=== PATIENT | male | born 1950 | race Caucasian/White ===

== ENCOUNTER 2016-05-13 09:14 | Emergency (ER) | payer BC ==
[2016-05-13] MEDS ORDERED: Meclizine 25 MG Tab PO ONE (10:52)
--- NOTE | 2016-05-13 10:52 | EDM.PDOC ---
ED HPI GENERAL MEDICAL PROBLEM - General Chief Complaint: General Stated Complaint: DIZZY/LIGHT HEADED Time Seen by Provider: 05/13/16 10:49 Source of Information: Reports: Patient, RN notes reviewed History Limitations: Reports: No limitations - History of Present Illness INITIAL COMMENTS - FREE TEXT/NARRATIVE: 65-year-old gentleman presents emergency department for a complaint of dizziness , he has a known history of coronary artery disease and atrial fibrillation on chronic anticoagulation, he states the dizziness just started today and it only happens when he stands up if he is laying down no symptoms denies any chest pain fevers nausea vomiting does admit to shortness of breath, - Related Data Allergies Allergy/AdvReac Type Severity Reaction Status Date / Time No Known Allergies Allergy Verified 05/13/16 10:11 Home Meds: Home Meds Aspirin [Low Dose Aspirin EC] 81 mg PO DAILY 11/18/12 [History] Metoprolol Succinate [Toprol XL] 50 mg PO BEDTIME 11/18/12 [History] atorvaSTATin [Lipitor] 40 mg PO BEDTIME 11/18/12 [History] metFORMIN HCl [Metformin HCl] 500 mg PO DAILY 11/18/12 [History] Lisinopril 2.5 mg PO DAILY 08/28/13 [History] Cholecalciferol (Vitamin D3) [Vitamin D3] 2,000 units PO BEDTIME 02/28/14 [ History] Leuprolide [Lupron Depot 3-Month] 1 injection IM ASDIRECTED 12/01/14 [History] Oxybutynin [Oxybutynin ER] 10 mg PO DAILY 12/01/14 [History] Verapamil [Calan SR] 120 mg PO DAILY #30 tab.er 12/02/14 [Rx] Multivitamin with Minerals [Multiple Vitamin] 1 tab PO DAILY 02/05/15 [History] Omeprazole 20 mg PO DAILY 02/05/15 [History] predniSONE [Prednisone] 5 mg PO BID 03/23/15 [History] Calcium Carbonate [Calcium] 600 mg PO DAILY 11/29/15 [History] Abiraterone Acetate [Zytiga] 750 mg PO DAILY 01/17/16 [History] Warfarin [Coumadin] 2.5 mg PO ASDIRECTED 02/12/16 [History] Furosemide 10 mg PO QAM 05/12/16 [History] oxyCODONE HCl/Acetaminophen [Percocet 5-325 mg Tablet] 1 each PO QID 05/12/16 [ History] Past Medical History HEENT History: Reports: Hard of hearing, Impaired vision Cardiovascular History: Reports: Afib, Arrhythmia, Blood clots/VTE/DVT, CAD, High cholesterol, Hypertension, NE Respiratory History: Reports: Bronchitis, recurrent, COPD, PE, Pneumonia, recurrent, Sleep apnea Gastrointestinal History: Reports: Hemorrhoids Genitourinary History: Reports: Prostate disorder Other Genitourinary History: prostate CA, artificial urinary sphincter; needs to be deactived before catheterizing. Spincter at base of bladder Musculoskeletal History: Reports: Amputation Other Musculoskeletal History: left long finger Neurological History: Reports: Neuropathy, peripheral, TIA Endocrine/Metabolic History: Reports: Diabetes, type II Other Hematologic History: chronic inflammatory neuropathy Oncologic (Cancer) History: Reports: Metastatic, Prostate Dermatologic History: Reports: Other (see below) Other Dermatologic History: Left Lower leg bruise - Infectious Disease History Infectious Disease History: Reports: Chicken pox, Shingles - Past Surgical History GI Surgical History: Reports: Appendectomy, Hernia repair/other Male Surgical History: Reports: Prostatectomy Social & Family History - Family History Cardiac: Reports: Hypertension - Tobacco Use Smoking Status *Q: Never Smoker Second Hand Smoke Exposure: Yes - Caffeine Use Caffeine Use: Reports: None - Alcohol Use Days Per Week of Alcohol Use: 1 Number of Drinks Per Day: 1 Total Drinks Per Week: 1 - Recreational Drug Use Recreational Drug Use: No ED ROS GENERAL - Review of Systems Review Of Systems: See Below Constitutional: Denies: fever, chills, weight gain HEENT: Reports: No symptoms Respiratory: Reports: shortness of breath. Denies: wheezing, cough, sputum Cardiovascular: Reports: Dyspnea on exertion, Syncope (Near upon standing). Denies: Chest pain GI/Abdominal: Reports: Bloody stool (Hemorrhoidal problem last colonoscopy was negative) : Reports: no symptoms Musculoskeletal: Reports: no symptoms Skin: Reports: no symptoms Neurological: Reports: dizziness, syncope (Upon standing feels like passing out) ED EXAM, GENERAL - Physical Exam Exam: See Below Free Text/Narrative:: General: Male, not in any distress, alert and oriented x3 HEENT: head is atraumatic normocephalic, eyes pupils equal round reactive to light and accommodation sclera clear no conjunctivitis appreciated. Ears tympanic membranes clear and fitch landmarks and light reflex are present bilaterally canals are clear. Nose no septal deviation, nares are clear, no blood present. Mouth mucosa is moist and pink no erythema or exudate noted in soft palate, tongue is midline uvula is midline, dentition is poor. Neck: Supple no thyromegaly no tracheal deviation. Nodes: Cervical nodes subclavicular nodes nontender no palpable lymphadenopathy noted. Lungs: clear to auscultation bilaterally with symmetrical respirations, no adventitious noise appreciated. CV: Irregular Regular rate and rhythm S1 and S2 appreciated no murmurs rubs or gallops noted. Abdomen: Soft, nontender, no palpable masses or organomegaly appreciated, no distention no guarding bowel sounds are present, . Neuro: Cranial nerves II through XII grossly intact Skin: Warm and dry, intact Extremities: No lower extremity edema appreciated, Course - Vital Signs Last Recorded V/S: Last Vital Signs Temp 97.5 F 05/13/16 10:12 Pulse 70 05/13/16 10:12 Resp 12 05/13/16 10:12 BP 100/63 05/13/16 10:12 Pulse Ox 93 L 05/13/16 10:12 - Orders/Labs/Meds Orders: Active Orders 24 hr Category Date Time Status Cardiac Monitoring [RC] .As Directed Care 05/13/16 10:48 Active EKG Documentation Completion [RC] ASDIRECTED Care 05/13/16 10:49 Active Orthostatic Vital Signs [RC] ASDIRECTED Care 05/13/16 11:55 Active Peripheral IV Care [RC] . DIRECTED Care 05/13/16 12:08 Active Sodium Chloride 0.9% [Normal Saline] 1,000 ml Med 05/13/16 12:15 Active IV ASDIRECTED Sodium Chloride 0.9% [Saline Flush] Med 05/13/16 12:08 Active 10 ml FLUSH ASDIRECTED PRN Peripheral IV Insertion Adult [OM.PC] Urgent Oth 05/13/16 12:07 Ordered EKG 12 Lead [EK] Stat Ther 05/13/16 10:49 Ordered Medication Orders Sodium Chloride (Normal Saline) 1,000 mls @ 999 mls/hr IV ASDIRECTED EDUARDO Last Admin: 05/13/16 12:38 Dose: 999 mls/hr Sodium Chloride (Saline Flush) 10 ml FLUSH ASDIRECTED PRN PRN Reason: Keep Vein Open Last Admin: 05/13/16 12:39 Dose: 10 ml Labs: Laboratory Tests 05/13/16 05/13/16 05/13/16 Range/Units 10:48 11:22 11:22 WBC 5.7 (4.5-11.0) K/uL RBC 3.90 L (4.30-5.90) M/uL Hgb 12.2 (12.0-15.0) g/dL Hct 37.0 L (40.0-54.0) % MCV 95 (80-98) fL MCH 31 (27-31) pg MCHC 33 (32-36) % Plt Count 237 (150-400) K/uL Neut % (Auto) 56 (36-66) % Lymph % (Auto) 22 L (24-44) % Green % (Auto) 20 H (2-6) % Eos % (Auto) 2 (2-4) % Baso % (Auto) 1 (0-1) % PT 24.0 H (9.5-12.0) sec INR 2.21 H (0.80-1.20) APTT 31.1 (27.0-36.0) sec D-Dimer, Quantitative (0.0-400.0) ng/mL Sodium 138 L (140-148) mmol/L Potassium 4.7 (3.6-5.2) mmol/L Chloride 100 (100-108) mmol/L Carbon Dioxide 29 (21-32) mmol/L Anion Gap 13.7 (5.0-14.0) mmol/L BUN 22 H (7-18) mg/dL Creatinine 1.5 H (0.8-1.3) mg/dL Est Cr Clr Drug Dosing TNP Estimated GFR (MDRD) 47 L (>60) Glucose 125 H (74-106) mg/dL Calcium 8.9 (8.5-10.1) mg/dL Total Bilirubin 0.7 (0.2-1.0) mg/dL AST 31 (15-37) U/L ALT 26 (12-78) U/L Alkaline Phosphatase 66 (46-116) U/L Creatine Kinase 106 (39-308) U/L CK-MB (CK-2) 1.0 (0-3.6) mg/mL Troponin I < 0.017 (0.000-0.056) ng/mL Total Protein 8.1 (6.4-8.2) g/dL Albumin 3.1 L (3.4-5.0) g/dL Globulin 5.0 H (2.3-3.5) g/dL Albumin/Globulin Ratio 0.6 L (1.2-2.2) 05/13/16 Range/Units 11:22 WBC (4.5-11.0) K/uL RBC (4.30-5.90) M/uL Hgb (12.0-15.0) g/dL Hct (40.0-54.0) % MCV (80-98) fL MCH (27-31) pg MCHC (32-36) % Plt Count (150-400) K/uL Neut % (Auto) (36-66) % Lymph % (Auto) (24-44) % Green % (Auto) (2-6) % Eos % (Auto) (2-4) % Baso % (Auto) (0-1) % PT (9.5-12.0) sec INR (0.80-1.20) APTT (27.0-36.0) sec D-Dimer, Quantitative 348 (0.0-400.0) ng/mL Sodium (140-148) mmol/L Potassium (3.6-5.2) mmol/L Chloride (100-108) mmol/L Carbon Dioxide (21-32) mmol/L Anion Gap (5.0-14.0) mmol/L BUN (7-18) mg/dL Creatinine (0.8-1.3) mg/dL Est Cr Clr Drug Dosing Estimated GFR (MDRD) (>60) Glucose (74-106) mg/dL Calcium (8.5-10.1) mg/dL Total Bilirubin (0.2-1.0) mg/dL AST (15-37) U/L ALT (12-78) U/L Alkaline Phosphatase (46-116) U/L Creatine Kinase (39-308) U/L CK-MB (CK-2) (0-3.6) mg/mL Troponin I (0.000-0.056) ng/mL Total Protein (6.4-8.2) g/dL Albumin (3.4-5.0) g/dL Globulin (2.3-3.5) g/dL Albumin/Globulin Ratio (1.2-2.2) Meds: Medications Generic Name Dose Route Start Last Admin Trade Name Freq PRN Reason Stop Dose Admin Sodium Chloride 1,000 mls @ 999 mls/hr 05/13/16 12:15 05/13/16 12:38 Normal Saline IV 999 mls/hr ASDIRECTED EDUARDO Administration Sodium Chloride 10 ml 05/13/16 12:08 05/13/16 12:39 Saline Flush FLUSH 10 ml ASDIRECTED PRN Administration Keep Vein Open Discontinued Medications Generic Name Dose Route Start Last Admin Trade Name Freq PRN Reason Stop Dose Admin Meclizine HCl 25 mg 05/13/16 10:52 05/13/16 11:24 Antivert PO 05/13/16 10:53 25 mg ONETIME ONE Administration - Re-Assessments/Exams Free Text/Narrative Re-Assessment/Exam: 05/13/16 11:55 informs me his Lasix dose was recently increased by double 2 days prior Departure - Departure Time of Disposition: 13:47 Disposition: Home, Self-Care 01 Condition: good Clinical Impression: Syncope Qualifiers: Syncope type: vasovagal syncope Qualified Code(s): R55 - Syncope and collapse Forms: ED Department Discharge Additional Instructions: resume prior dose of Lasix, Please followup with your primary care provider in 5-7 days if not better, please call return to the emergency department with worsening of symptoms. - My Orders Last 24 Hours: My Active Orders 05/13/16 10:48 Cardiac Monitoring [RC] .As Directed 05/13/16 10:49 EKG Documentation Completion [RC] ASDIRECTED EKG 12 Lead [EK] Stat 05/13/16 11:55 Orthostatic Vital Signs [RC] ASDIRECTED 05/13/16 12:07 Peripheral IV Insertion Adult [OM.PC] Urgent 05/13/16 12:08 Peripheral IV Care [RC] . DIRECTED Sodium Chloride 0.9% [Saline Flush] 10 ml FLUSH ASDIRECTED PRN 05/13/16 12:15 Sodium Chloride 0.9% [Normal Saline] 1,000 ml IV ASDIRECTED - Assessment/Plan Last 24 Hours: My Active Orders 05/13/16 10:48 Cardiac Monitoring [RC] .As Directed 05/13/16 10:49 EKG Documentation Completion [RC] ASDIRECTED EKG 12 Lead [EK] Stat 05/13/16 11:55 Orthostatic Vital Signs [RC] ASDIRECTED 05/13/16 12:07 Peripheral IV Insertion Adult [OM.PC] Urgent 05/13/16 12:08 Peripheral IV Care [RC] . DIRECTED Sodium Chloride 0.9% [Saline Flush] 10 ml FLUSH ASDIRECTED PRN 05/13/16 12:15 Sodium Chloride 0.9% [Normal Saline] 1,000 ml IV ASDIRECTED Plan: Assessment Acuity = acute Site and laterality = syncope complicated patient with known atrial fibrillation on chronic anticoagulation Etiology = unclear etiology possibly related to recent dosage increase of Lasix Manifestations = syncope improved Location of injury = home Lab values = CBC unremarkable INR therapeutic at 2.21 sodium low at 138 consistent hyponatremia creatinine elevated 1.4 consistent with acute renal failure stage TIII A. albumin low at 3.1 consistent hypoalbuminemia chest x-ray shows no acute process EKG demonstrates atrial fibrillation no ST elevations or depression Plan he had significant improvement with 1 L fluids provided plan is to return to his normal dose of Lasix follow up with primary care in 5-7 days for evaluation Patient was in agreement with the plan all questions were answered, they were instructed to return to the emergency department or call for worsening symptoms. This note was dictated using [employer] voice recognition software please call with any questions.
--- NOTE | 2016-05-13 11:18 | CR ---
Chest 1V Frontal HISTORY: Shortness of breath. Comparison: 06/12/2015 FINDINGS: Cardiac size and pulmonary vessels are normal. The lungs are clear. IMPRESSION: Negative AP chest.
[2016-05-13] MEDS ORDERED: Sodium Chloride 0.9% 10 ML Syringe FLUSH PRN (12:08)
[2016-05-13] MEDS ORDERED: Sodium Chloride 0.9% 1,000 ML IV SCH (12:15)
[2016-05-13 15:30] VITALS: BP 125/73
== END 2016-05-13 14:20 | disposition home or self-care (01) ==
LOC: JP.ED 09:14
DX: R55 Syncope and collapse (principal); I25.10 Atherosclerotic heart disease of native coronary artery without angina pectoris; E11.9 Type 2 diabetes mellitus without complications; I11.9 Hypertensive heart disease without heart failure; I48.91 Unspecified atrial fibrillation; Z79.82 Long term (current) use of aspirin; Z79.01 Long term (current) use of anticoagulants; Z98.890 Other specified postprocedural states
CPT/HCPCS: 36415; 71010; 80053; 82550; 82553; 84484; 85025; 85379; 85610; 85730; 93005; 99284; A9270; J7040; J7050

== ENCOUNTER 2016-10-14 06:28 | Day surgery (SDC) | payer MEDICARE, BC ==
[2016-10-14] MEDS ORDERED: Bupivacaine 0.5% 50 ML MDV ONE (06:37)
[2016-10-14] MEDS ORDERED: Lidocaine 1% with EPINEPHrine 1:100,000 50 ML MDV ONE (06:38)
[2016-10-14] MEDS ORDERED: Sodium Chloride 0.9% 1,000 ML IV SCH (07:00)
[2016-10-14] MEDS ORDERED: ceFAZolin 2 GM in Sodium Chloride 0.9% 50 ML IV ONE (07:30)
[2016-10-14] MEDS ORDERED: Propofol 200 MG/20 ML SDV ONE (07:38)
[2016-10-14] MEDS ORDERED: Midazolam 1 MG/ML 2 ML SDV ONE (07:39)
[2016-10-14] MEDS ORDERED: fentaNYL 100 MCG/2 ML SDV ONE (07:39)
[2016-10-14] MEDS ORDERED: Ondansetron 4 MG/2 ML SDV ONE (07:54)
[2016-10-14] MEDS ORDERED: Scopolamine 1.5 MG Transdermal Patch ONE (08:33)
--- NOTE | 2016-10-14 08:40 | CR ---
Port-A-Cath crosses midline at upper SVC.
[2016-10-14] MEDS ORDERED: Acetaminophen/HYDROcodone 325-5 MG Tab PO PRN (11:09)
[2016-10-14 11:14] VITALS: BP 119/61
--- NOTE | 2016-10-15 08:43 | OR ---
DATE OF PROCEDURE: 10/14/2016 PROCEDURE PERFORMED: Port-A-Cath placement, left subclavian vein. COMPLICATIONS: None. SUPERVISOR FORMING DEPARTMENT: None. PREOPERATIVE DIAGNOSES: 1. The patient requiring chronic IV access for chronic medical management. 2. Chronic inflammatory demyelinating neuropathy. POSTOPERATIVE DIAGNOSES: 1. The patient requiring chronic IV access for chronic medical management. 2. Chronic inflammatory demyelinating neuropathy. RISKS: Risks, benefits, alternatives, and limitations including, but not limited to infection, bleeding, and pneumothorax were explained to the patient, and they wished to proceed. PROCEDURE IN DETAIL: The patient was placed in supine position. The left chest was prepped and draped. The left subclavian vein was accessed using a micropuncture kit on the first pass. Using intraoperative imaging, this was noted to cross the midline and head toward the heart consistent with venous access. The skin was then anesthetized with lidocaine. A single lauren was created. This was then exchanged for a 35,000th wire. This was then exchanged for the dilator, which the tubing was then passed through. Prior to this, the pocket was created by anesthetizing with lidocaine, and a 15 blade in conjunction with a Metzenbaum scissors was used to create this pocket. This was then sutured into place using multiple Vicryl sutures. The wound was closed with 3-0 Vicryl and 4-0 Vicryl in interrupted running fashion. Dermabond was applied. The patient tolerated the procedure well. Daniel Eckert MD /[id number]
== END 2016-10-14 11:37 | disposition home or self-care (01) ==
LOC: JP.SDS 06:28
PROVIDERS: ATTEND Surgery
DX: Z45.2 Encounter for adjustment and management of vascular access device (principal); G61.81 Chronic inflammatory demyelinating polyneuritis; G47.33 Obstructive sleep apnea (adult) (pediatric); E78.5 Hyperlipidemia, unspecified; E11.9 Type 2 diabetes mellitus without complications; I25.10 Atherosclerotic heart disease of native coronary artery without angina pectoris
CPT/HCPCS: 36561; A9270; C1788; C1894; J0690; J1642; J2250; J2405; J2704; J3010; J7040; J7050

== ENCOUNTER 2016-10-16 07:03 | Day surgery (SDC) | payer MEDICARE, BC ==
[2016-10-16] MEDS ORDERED: Sodium Chloride 0.9% 1,000 ML IV SCH (07:30)
[2016-10-16] MEDS ORDERED: Propofol 200 MG/20 ML SDV ONE ×2 (07:40→08:29)
[2016-10-16] MEDS ORDERED: fentaNYL 100 MCG/2 ML SDV ONE (07:40)
[2016-10-16 10:50] VITALS: BP 118/83
--- NOTE | 2016-10-16 15:19 | OR ---
DATE OF PROCEDURE: 10/16/2016 PROCEDURE PERFORMED: Colonoscopy. FINDINGS: 1. Normal colonoscopy. 2. Diverticulosis (approximately 2 or 3 tics). COMPLICATIONS: None. REGULATORY AFFAIRS STRATEGY SPECIALIST: None. ANESTHESIA: MAC. RISKS: Risks, benefits, alternatives, and limitations including, but not limited to infection, bleeding, and perforation were explained to the patient, and he wished to proceed. PROCEDURE IN DETAIL: The patient was placed in left lateral decubitus position. Digital rectal exam was performed without abnormality. The scope was introduced and advanced atraumatically to the ileocecal valve. The scope was brought back to the ascending, transverse, descending colon, and retroflexed. The patient had approximately 2 or 3 tics noted. No abnormalities and retroflexed. No old blood. No new blood. No polyps. No masses. No concerns. The patient tolerated the procedure well. Daniel Eckert MD /[id number]
== END 2016-10-16 10:40 | disposition home or self-care (01) ==
LOC: JP.SDS 07:03
PROVIDERS: ATTEND Surgery
DX: Z12.11 Encounter for screening for malignant neoplasm of colon (principal); K57.30 Diverticulosis of large intestine without perforation or abscess without bleeding; I25.10 Atherosclerotic heart disease of native coronary artery without angina pectoris; G47.33 Obstructive sleep apnea (adult) (pediatric); G45.9 Transient cerebral ischemic attack, unspecified
CPT/HCPCS: G0121; J2704; J3010

== ENCOUNTER 2017-09-22 20:42 | Emergency (ER) | payer MEDICARE, BC ==
[2017-09-22] MEDS ORDERED: Albuterol/Ipratropium 3.0-0.5 MG/3 ML Neb Soln NEB ONE (21:55)
--- NOTE | 2017-09-22 22:01 | EDM.PDOC ---
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 Also has a cough but no sputum. No fever. Feels very stuffy in the hand. Mild headache, no abdominal pain no nausea or vomiting appetite has been normal. He is a bit worried that he might be having another blood, lung. 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 headache Pain Score (Numeric/FACES): 4 - Related Data Allergies Allergy/AdvReac Type Severity Reaction Status Date / Time No Known Allergies Allergy Verified 09/22/17 21:09 Home Meds: Home Meds Aspirin [Low Dose Aspirin EC] 81 mg PO DAILY 11/18/12 [History] Metoprolol Succinate [Toprol XL] 50 mg PO DAILY 11/18/12 [History] atorvaSTATin [Lipitor] 40 mg PO BEDTIME 11/18/12 [History] metFORMIN HCl [Metformin HCl] 500 mg PO BID 11/18/12 [History] Cholecalciferol (Vitamin D3) [Vitamin D3] 2,000 units PO BEDTIME 02/28/14 [ History] Leuprolide [Lupron Depot 3-Month] 1 injection IM ASDIRECTED 12/01/14 [History] Oxybutynin [Oxybutynin ER] 10 mg PO DAILY 12/01/14 [History] Verapamil [Calan SR] 120 mg PO DAILY #30 tab.er 12/02/14 [Rx] Multivitamin with Minerals [Multiple Vitamin] 1 tab PO DAILY 02/05/15 [History] Omeprazole 20 mg PO DAILY 02/05/15 [History] Calcium Carbonate [Calcium] 600 mg PO BID 11/29/15 [History] Warfarin [Coumadin] 3 tab PO SUMOWETHFRSA 02/12/16 [History] Furosemide 10 mg PO QAM 05/12/16 [History] Warfarin [Coumadin] 4 tab PO TU 10/01/16 [History] Albuterol [Ventolin HFA] 2 puff INH Q4H PRN #1 inhaler 09/22/17 [Rx] Doxycycline Monohydrate 100 mg PO BID #20 capsule 09/22/17 [Rx] Magnesium Oxide [Magnesium] 400 mg PO BID 09/22/17 [History] predniSONE [Prednisone] 20 mg PO BID #28 tab.ds.pk 09/22/17 [Rx] Past Medical History HEENT History: Reports: Hard of Hearing, Impaired Vision Other HEENT History: wears glasses, has bilat hearing aides Cardiovascular History: Reports: Afib, Arrhythmia, Blood Clots/VTE/DVT, CAD, High Cholesterol, Hypertension, MD, SOB on Exertion Respiratory History: Reports: PE Gastrointestinal History: Reports: None Genitourinary History: Reports: Prostate Disorder Other Genitourinary History: prostate CA, artificial urinary sphincter; needs to be deactived before catheterizing. Spincter at base of bladder Musculoskeletal History: Reports: Fracture Other Musculoskeletal History: left long finger Neurological History: Reports: Other (See Below) Other Neuro History: chronic inflammatory demylinating neuropathy Endocrine/Metabolic History: Reports: Diabetes, Type II, Obesity/BMI 30+ Hematologic History: Reports: Other (See Below) Other Hematologic History: chronic inflammatory neuropathy Immunologic History: Reports: Immunosuppression Oncologic (Cancer) History: Reports: Metastatic, Prostate, Other (See Below) Other Oncologic History: chemo, radiation Dermatologic History: Reports: Other (See Below) Other Dermatologic History: Left Lower leg bruise - Infectious Disease History Infectious Disease History: Reports: Chicken Pox - Past Surgical History HEENT Surgical History: Reports: None Cardiovascular Surgical History: Reports: Cardiac Ablation, Other (See Below) Other Cardiovascular Surgeries/Procedures: ablation GI Surgical History: Reports: Appendectomy, Colonoscopy, Hernia Repair/Other Male Surgical History: Reports: Prostatectomy, Other (See Below) Other Male Surgeries/Procedures: artificial sphincter Endocrine Surgical History: Reports: None Oncologic Surgical History: Reports: None Dermatological Surgical History: Reports: None Social & Family History - Family History Family Medical History: Noncontributory Cardiac: Reports: Hypertension - Tobacco Use Smoking Status *Q: Never Smoker - Caffeine Use Caffeine Use: Reports: Soda - Alcohol Use Days Per Week of Alcohol Use: 1 Number of Drinks Per Day: 1 Total Drinks Per Week: 1 - Recreational Drug Use Recreational Drug Use: No ED ROS GENERAL - Review of Systems Review Of Systems: See Below Constitutional: Reports: Malaise, Weakness (Starts stumbling over his feet), Fatigue. Denies: Fever, Diaphoresis, Decreased Appetite HEENT: Reports: Throat Pain (Very mild), Other (Feels congested and stuffy in his whole head). Denies: Dental Pain, Ear Discharge, Ear Pain, Eye Discharge, Eye Pain, Nose Pain Respiratory: Reports: Shortness of Breath, Wheezing, Cough. Denies: Pleuritic Chest Pain, Sputum Cardiovascular: Reports: Edema (Chronic left leg), Lightheadedness. Denies: Chest Pain, Palpitations, Syncope GI/Abdominal: Reports: No Symptoms : Reports: No Symptoms Musculoskeletal: Reports: No Symptoms Skin: Reports: No Symptoms Neurological: Reports: No Symptoms. Denies: Confusion (Not confused according to ) Psychiatric: Reports: No Symptoms Hematologic/Lymphatic: Reports: No Symptoms Immunologic: Reports: No Symptoms ED EXAM, GENERAL - Physical Exam Exam: See Below Exam Limited By: No Limitations General Appearance: Alert, Anxious, Mild Distress, Other (Audible wheezing, oxygen level was low for him at 92%, elevated blood pressure, temperature normal ) Eye Exam: Bilateral Eye: Normal Inspection Ears: Normal External Exam, Normal Canal, Normal TMs, Hearing Loss (Chronic) Nose: Normal Inspection, Normal Mucosa Throat/Mouth: Normal Inspection, Normal Oropharynx Head: Normocephalic Neck: Normal Inspection, Supple. No: Lymphadenopathy (R), Lymphadenopathy (L) Respiratory/Chest: No Respiratory Distress, No Accessory Muscle Use, Chest Non- Tender, Wheezing, Prolonged Expiration Cardiovascular: Normal Peripheral Pulses, Regular Rate, Rhythm GI/Abdominal: Normal Bowel Sounds, Soft, Non-Tender, Other (Protuberant abdomen) Back Exam: Normal Inspection Extremities: Non-Tender, Pedal Edema (Left leg) Neurological: Alert, No Motor/Sensory Deficits Psychiatric: Normal Affect, Normal Mood Skin Exam: Warm, Dry, Intact, Normal Color, No Rash Course - Vital Signs Last Recorded V/S: Last Vital Signs Temp 38.3 C H 09/22/17 23:44 Pulse 90 09/22/17 23:44 Resp 20 09/22/17 23:44 BP 162/100 H 09/22/17 23:44 Pulse Ox 91 L 09/22/17 23:44 - Orders/Labs/Meds Orders: Active Orders 24 hr Category Date Time Status EKG Documentation Completion [RC] ASDIRECTED Care 09/22/17 21:55 Active RT Aerosol Therapy [RC] ASDIRECTED Care 09/22/17 21:55 Active RT Aerosol Therapy [RC] ASDIRECTED Care 09/22/17 23:31 Active Chest 2V [CR] Stat Exams 09/22/17 21:55 Taken EKG 12 Lead [EK] Routine Ther 09/22/17 21:55 Ordered Labs: Laboratory Tests 09/22/17 09/22/17 09/22/17 Range/Units 22:00 22:00 22:00 WBC 6.1 (4.5-11.0) K/uL RBC 3.85 L (4.30-5.90) M/uL Hgb 11.8 L (12.0-15.0) g/dL Hct 36.6 L (40.0-54.0) % MCV 95 (80-98) fL MCH 31 (27-31) pg MCHC 32 (32-36) % Plt Count 162 (150-400) K/uL D-Dimer, Quantitative 389 (0.0-400.0) ng/mL Sodium 136 L (140-148) mmol/L Potassium 4.8 (3.6-5.2) mmol/L Chloride 103 (100-108) mmol/L Carbon Dioxide 28 (21-32) mmol/L Anion Gap 9.8 (5.0-14.0) mmol/L BUN 24 H (7-18) mg/dL Creatinine 1.2 (0.8-1.3) mg/dL Est Cr Clr Drug Dosing 64.49 mL/min Estimated GFR (MDRD) > 60 (>60) Glucose 122 H (74-106) mg/dL Calcium 8.8 (8.5-10.1) mg/dL Meds: Medications Discontinued Medications Generic Name Dose Route Start Last Admin Trade Name Freq PRN Reason Stop Dose Admin Albuterol/Ipratropium 3 ml 09/22/17 21:55 09/22/17 22:00 Duoneb 3.0-0.5 Mg/3 Ml NEB 09/22/17 21:56 3 ml ONETIME ONE Administration Budesonide 0.5 mg 09/22/17 23:30 09/22/17 23:40 Pulmicort NEB 09/22/17 23:31 0.5 mg ONETIME ONE Administration Doxycycline Hyclate 100 mg 09/22/17 23:30 09/22/17 23:40 Vibramycin PO 09/22/17 23:31 100 mg ONETIME ONE Administration Prednisone 20 mg 09/22/17 23:30 09/22/17 23:40 Prednisone PO 09/22/17 23:31 20 mg ONETIME ONE Administration - Re-Assessments/Exams Free Text/Narrative Re-Assessment/Exam: 09/22/17 22:00 67-year-old male with increasing shortness of breath cough weakness tiredness over the last 2 days. Notable wheezing on examination along with hypoxia compared to normal. Differential diagnosis includes bronchospasm, bronchitis, pneumonia, heart failure less likely. Pulmonary is unlikely but possible Albuterol and ipratropium by nebulizer chest x-ray and labs ordered 09/22/17 23:31 Some improvement after nebulizer Chest x-ray shows possibly a faint patchy right middle lobe but no overt pneumonia or effusion does not appear to be heart failure. D-dimer is within normal Mild anemia present previously no change, normal WBC Still significant wheezing on examination but saturation is a fifth improved 94- 95% Appears to be bronchitis with bronchospasm Budesonide 0.5 mg by nebulizer, prednisone 20 mg by mouth, doxycycline 100 mg by mouth 09/23/17 00:11 EKG shows sinus rhythm with PACs, partial block, no evidence of ischemia Patient does have an appointment with primary care next week Departure - Departure Time of Disposition: 23:58 Disposition: Home, Self-Care 01 Condition: Good Clinical Impression: Bronchitis with bronchospasm - Discharge Information Prescriptions: Albuterol [Ventolin HFA] 2 puff INH Q4H PRN #1 inhaler PRN Reason: Cough or wheezing Doxycycline Monohydrate 100 mg PO BID #20 capsule predniSONE [Prednisone] 20 mg PO BID #28 tab.ds.pk Referrals: Ilia Adan MD [Primary Care Provider] - Forms: ED Department Discharge Additional Instructions: Rest at home Return to emergency if getting increasingly short of breath, bad chest pain, high fever, or not able to manage - My Orders Last 24 Hours: My Active Orders 09/22/17 21:55 EKG Documentation Completion [RC] ASDIRECTED RT Aerosol Therapy [RC] ASDIRECTED Chest 2V [CR] Stat EKG 12 Lead [EK] Routine 09/22/17 23:31 RT Aerosol Therapy [RC] ASDIRECTED - Assessment/Plan Last 24 Hours: My Active Orders 09/22/17 21:55 EKG Documentation Completion [RC] ASDIRECTED RT Aerosol Therapy [RC] ASDIRECTED Chest 2V [CR] Stat EKG 12 Lead [EK] Routine 09/22/17 23:31 RT Aerosol Therapy [RC] ASDIRECTED
[2017-09-22] MEDS ORDERED: Budesonide 0.5 MG/2 ML Neb Susp NEB ONE (23:30)
[2017-09-22] MEDS ORDERED: predniSONE 20 MG Tab PO ONE (23:30)
[2017-09-22] MEDS ORDERED: Doxycycline 100 MG Cap PO ONE (23:30)
[2017-09-22 23:46] VITALS: BP 162/100
--- NOTE | 2017-09-23 08:49 | CR ---
CHEST: 2 view CLINICAL HISTORY:Wheezing COMPARISON:05/13/2016 FINDINGS: Patient has an [id number] from the left subclavian approach. There is a right jugular d ouble-lumen catheter. Tips are in the superior vena cava. Heart and pulmonary vascularity appear norm al. There are atherosclerotic changes in the aorta. No infiltrates are seen . IMPRESSION: Left-sided [id number] and right jugular catheters are in place No acute cardiopulmonary process
== END 2017-09-23 00:27 | disposition home or self-care (01) ==
LOC: JP.ED 20:42
DX: J40 Bronchitis, not specified as acute or chronic (principal); J98.01 Acute bronchospasm; I48.91 Unspecified atrial fibrillation; E78.00 Pure hypercholesterolemia, unspecified; E11.40 Type 2 diabetes mellitus with diabetic neuropathy, unspecified; Z79.82 Long term (current) use of aspirin; Z79.84 Long term (current) use of oral hypoglycemic drugs; Z79.01 Long term (current) use of anticoagulants; Z79.899 Other long term (current) drug therapy
CPT/HCPCS: 36415; 71046; 80048; 85027; 85379; 93005; 94640; 99285; A9270; J7620

== ENCOUNTER 2018-06-25 13:47 | Emergency (ER) | payer MEDICARE, BC ==
[2018-06-25] MEDS ORDERED: Ketorolac 30 MG/ML SDV IM ONE (14:23)
[2018-06-25 14:26] VITALS: BP 137/85
--- NOTE | 2018-06-25 14:26 | EDM.PDOC ---
ED HPI GENERAL MEDICAL PROBLEM - General Chief Complaint: General Stated Complaint: FELL [place] [employer] [place] Time Seen by Provider: 06/25/18 14:19 Source of Information: Reports: Patient, RN Notes Reviewed History Limitations: Reports: No Limitations - History of Present Illness INITIAL COMMENTS - FREE TEXT/NARRATIVE: 67-year-old gentleman presents emergency department today after a fall, he was walking across a parking lot into the hospital today slipped and fell on the ice this morning landed on his left side he is now complaining of chest pain over the ribs axillary area no difficulty breathing however does hurt with a deep breath - Related Data Allergies Allergy/AdvReac Type Severity Reaction Status Date / Time No Known Allergies Allergy Verified 06/25/18 14:13 Home Meds: Home Meds Aspirin [Low Dose Aspirin EC] 81 mg PO DAILY 11/18/12 [History] Metoprolol Succinate [Toprol XL] 75 mg PO DAILY 11/18/12 [History] atorvaSTATin [Lipitor] 40 mg PO BEDTIME 11/18/12 [History] metFORMIN HCl [Metformin HCl] 500 mg PO BIDMEALS 11/18/12 [History] Cholecalciferol (Vitamin D3) [Vitamin D3] 2,000 units PO BEDTIME 02/28/14 [ History] Oxybutynin [Oxybutynin ER] 10 mg PO DAILY 12/01/14 [History] Verapamil [Calan SR] 120 mg PO DAILY #30 tab.er 12/02/14 [Rx] Multivitamin with Minerals [Multiple Vitamin] 1 tab PO DAILY 02/05/15 [History] Omeprazole 20 mg PO DAILY 02/05/15 [History] Calcium Carbonate [Calcium] 600 mg PO DAILY 11/29/15 [History] Warfarin [Coumadin] 7.5 mg PO DAILY 02/12/16 [History] Furosemide 10 mg PO QAM PRN 05/12/16 [History] Magnesium Chloride [Mag-64] 2 tab PO Q12H 10/22/17 [History] Leuprolide [Lupron] 1 mg IM .Q4MO 11/06/17 [History] Albuterol [Ventolin HFA] 1 - 2 puff INH Q4H PRN 12/31/17 [History] Hydrocortisone [Hydrocortisone 2.5% Crm] 1 applic RECTAL BEDTIME PRN 12/31/17 [ History] Past Medical History HEENT History: Reports: Hard of Hearing, Impaired Vision Other HEENT History: wears glasses, has bilat hearing aides Cardiovascular History: Reports: Afib, Arrhythmia, Blood Clots/VTE/DVT, CAD, High Cholesterol, Hypertension, CA, SOB on Exertion Respiratory History: Reports: PE Genitourinary History: Reports: Prostate Disorder Other Genitourinary History: prostate CA, artificial urinary sphincter; needs to be deactived before catheterizing. Spincter at base of bladder Musculoskeletal History: Reports: Fracture Other Musculoskeletal History: left long finger Neurological History: Reports: Other (See Below) Other Neuro History: chronic inflammatory demylinating neuropathy Endocrine/Metabolic History: Reports: Diabetes, Type II, Obesity/BMI 30+ Hematologic History: Reports: Other (See Below) Other Hematologic History: chronic inflammatory neuropathy Immunologic History: Reports: Immunosuppression Oncologic (Cancer) History: Reports: Metastatic, Prostate, Other (See Below) Other Oncologic History: chemo, radiation Dermatologic History: Reports: Other (See Below) Other Dermatologic History: Left Lower leg bruise - Infectious Disease History Infectious Disease History: Reports: Chicken Pox - Past Surgical History HEENT Surgical History: Reports: None Cardiovascular Surgical History: Reports: Cardiac Ablation, Other (See Below) Other Cardiovascular Surgeries/Procedures: ablation GI Surgical History: Reports: Appendectomy, Colonoscopy, Hernia Repair/Other Male Surgical History: Reports: Prostatectomy, Other (See Below) Other Male Surgeries/Procedures: artificial sphincter Oncologic Surgical History: Reports: None Dermatological Surgical History: Reports: None Social & Family History - Family History Family Medical History: Noncontributory Cardiac: Reports: Hypertension - Tobacco Use Smoking Status *Q: Never Smoker - Caffeine Use Caffeine Use: Reports: Soda ED ROS GENERAL - Review of Systems Review Of Systems: Unable To Obtain Respiratory: Reports: No Symptoms Cardiovascular: Reports: Chest Pain Musculoskeletal: Reports: Other (Rib pain) Skin: Reports: No Symptoms ED EXAM, GENERAL - Physical Exam Exam: See Below Exam Limited By: No Limitations General Appearance: Alert, WD/WN, No Apparent Distress Respiratory/Chest: No Respiratory Distress, Lungs Clear, Normal Breath Sounds, No Accessory Muscle Use, Other (Tender midaxillary line left side) Cardiovascular: No Murmur, Irregularly Irregular Course - Vital Signs Last Recorded V/S: Last Vital Signs Temp 95.9 F 06/25/18 14:52 Pulse 69 06/25/18 14:52 Resp 17 06/25/18 14:52 BP 137/85 06/25/18 14:52 Pulse Ox 95 06/25/18 14:52 - Orders/Labs/Meds Meds: Medications Discontinued Medications Generic Name Dose Route Start Last Admin Trade Name [place] PRN Reason Stop Dose Admin Ketorolac Tromethamine 30 mg 06/25/18 14:23 Toradol IM 06/25/18 14:24 ONETIME ONE Departure - Departure Time of Disposition: 14:58 Disposition: Home, Self-Care 01 Condition: Fair Clinical Impression: Contusion of rib on left side Qualifiers: Encounter type: initial encounter Qualified Code(s): S20.212A - Contusion of left front wall of thorax, initial encounter - Discharge Information Referrals: Ilia Adan MD [Primary Care Provider] - Forms: ED Department Discharge Additional Instructions: Continue to use Tylenol as needed for pain control, Please followup with your primary care provider in 3-5 days if not better, please call return to the emergency department with worsening of symptoms. - Assessment/Plan Plan: Assessment Acuity = acute Site and laterality = rib contusion left side Etiology = secondary to a fall on ice Manifestations = pain Location of injury = Home Lab values = x-ray shows no acute process of the chest Plan He was provided 30 mg Toradol while in the emergency department he will use Tylenol as needed for pain control follow up with primary care 3-5 days if no improvement This note was dictated using Split voice recognition software please call with any questions on syntax or grammar.
--- NOTE | 2018-06-25 14:52 | CRLCR ---
INDICATION: Left-sided rib pain after falling today. Pain left side under arm. TECHNIQUE: Two views of the chest PA and lateral. COMPARISON: 09/22/2017. FINDINGS: There is a left-sided port a catheter with its tip in the superior vena cava. Heart and mediastinum are unchanged. Aorta is tortuous and ectatic. There is bibasilar atelectasis. No large consolidations or pleural effusions. Trachea is midline. No pneumothorax. No obvious displaced rib fractures on the left. IMPRESSION: Bibasilar atelectasis. No evidence of acute disease. Dictated by Leo Neri MD @ Jun 25 2018 2:48PM Signed by Dr. Leo Neri @ Jun 25 2018 2:50PM
== END 2018-06-25 15:22 | disposition home or self-care (01) ==
LOC: JP.ED 13:47
DX: S20.212A Contusion of left front wall of thorax, initial encounter (principal); I48.91 Unspecified atrial fibrillation; E78.00 Pure hypercholesterolemia, unspecified; I10 Essential (primary) hypertension; E11.40 Type 2 diabetes mellitus with diabetic neuropathy, unspecified; Z79.01 Long term (current) use of anticoagulants; Z79.899 Other long term (current) drug therapy; Z79.82 Long term (current) use of aspirin; W00.0XXA Fall on same level due to ice and snow, initial encounter
CPT/HCPCS: 71046; 96372; 99284; J1885

== ENCOUNTER 2018-10-20 06:05 | Day surgery (SDC) | payer MEDICARE, BC ==
[2018-10-20] MEDS ORDERED: Nozin Nasal Sanitizer NASBOTH ONE (06:30)
[2018-10-20] MEDS ORDERED: Bupivacaine 0.25% 10 ML SDV ONE (06:51)
[2018-10-20] MEDS ORDERED: fentaNYL 250 MCG/5 ML SDV ONE (06:59)
[2018-10-20] MEDS ORDERED: Lactated Ringers 1,000 ML IV SCH (07:00)
[2018-10-20] MEDS ORDERED: Glycopyrrolate 0.2 MG/ML 5 ML MDV ONE (07:00)
[2018-10-20] MEDS ORDERED: Dexamethasone 4 MG/ML SDV ONE (07:00)
[2018-10-20] MEDS ORDERED: Ondansetron 4 MG/2 ML SDV ONE (07:00)
[2018-10-20] MEDS ORDERED: Succinylcholine 200 MG/10 ML MDV ONE (07:00)
[2018-10-20] MEDS ORDERED: Propofol 200 MG/20 ML SDV ONE (07:00)
[2018-10-20] MEDS ORDERED: Neostigmine Methylsulfate 1 MG/ML 5 ML Syringe ONE (07:00)
[2018-10-20] MEDS ORDERED: Rocuronium 50 MG/5 ML Vial ONE (07:00)
[2018-10-20] MEDS ORDERED: ceFAZolin 2 GM in Sodium Chloride 0.9% 50 ML IV ONE (07:15)
[2018-10-20] MEDS ORDERED: Acetaminophen/HYDROcodone 325-5 MG Tab PO PRN (10:15)
[2018-10-20 10:49] VITALS: BP 112/64; PULSE 71
--- NOTE | 2018-10-20 15:56 | OR ---
DATE OF PROCEDURE: 10/20/2018 PREOPERATIVE DIAGNOSIS: Medial meniscus tear, left knee. POSTOPERATIVE DIAGNOSES: 1. Medial meniscus tear, left knee, posterior horn radial tear. 2. Mild chondromalacia of patella. PROCEDURE: Arthroscopy of left knee with partial medial meniscectomy and minor debridement of patella. ANESTHESIA: General. INDICATIONS: Ankush is a 68-year-old gentleman with a history of persistent left knee pain. Examination and imaging are consistent with a tear of the posterior horn of the medial meniscus. He has failed conservative treatment and presents for arthroscopic evaluation and partial meniscectomy. Risks, benefits, potential complications of the procedure were discussed. PROCEDURE IN DETAIL: After adequate anesthesia was obtained, patient was placed supine with a tourniquet about the left upper thigh. Left leg was prepped and draped in a sterile fashion. Leg was exsanguinated and tourniquet inflated to 300 mmHg. Standard inferior, medial, and lateral portals were established. The scope was introduced and the patellofemoral joint was inspected. This revealed some mild fraying of the dome of the patella and to a lesser extent around the periphery. Trochlear groove was intact. Medial compartment revealed intact articular cartilage in the femoral and tibial surfaces. Posterior horn showed a radial tear with 2 flaps extending not quite all the way back to the periphery. Intercondylar notch revealed intact ACL and PCL. Lateral compartment with an intact meniscus, some minor softening of the tibial surface and intact articular cartilage of the femoral condyle. Attention was returned to the medial compartment where a punch basket was used to debride the two flaps of the radial tear, contouring them back to the apex of the tear. Fragments were removed with the shaver and the edges were then further contoured with the shaver. The probe was then used to evaluate the meniscus and the remaining meniscus was stable. All loose fragments were removed. Attention was returned to the patellofemoral joint where shaver was used to very lightly debride some of the looser fragments of articular cartilage. No other abnormalities were identified. The knee was drained. Scope was withdrawn. Port sites were closed in a standard fashion, infiltrated with Marcaine and a sterile dressing was applied. The patient tolerated the procedure well. There were no complications. He was taken from the operating room in stable condition. Russ Davies MD /[id number]
== END 2018-10-20 12:25 | disposition home or self-care (01) ==
LOC: JP.SDS 06:05
PROVIDERS: ATTEND Specialist
DX: S83.242A Other tear of medial meniscus, current injury, left knee, initial encounter (principal); M22.42 Chondromalacia patellae, left knee; I12.9 Hypertensive chronic kidney disease with stage 1 through stage 4 chronic kidney disease, or unspecified chronic kidney disease; N18.3 Chronic kidney disease, stage 3 (moderate); E78.5 Hyperlipidemia, unspecified; G47.33 Obstructive sleep apnea (adult) (pediatric); E11.40 Type 2 diabetes mellitus with diabetic neuropathy, unspecified; I25.10 Atherosclerotic heart disease of native coronary artery without angina pectoris; Z79.01 Long term (current) use of anticoagulants; Z99.89 Dependence on other enabling machines and devices; Z79.4 Long term (current) use of insulin; Z79.899 Other long term (current) drug therapy; Z86.79 Personal history of other diseases of the circulatory system; Z98.890 Other specified postprocedural states; Z86.718 Personal history of other venous thrombosis and embolism; Z86.73 Personal history of transient ischemic attack (TIA), and cerebral infarction without residual deficits
CPT/HCPCS: 29881; 36415; 85610; 85730; A9270; J0330; J0690; J1100; J1642; J2405; J2704; J2710; J3010; J3490; J7050; J7120

== ENCOUNTER 2020-03-21 11:26 | Emergency (ER) | payer MEDICARE, BC ==
[2020-03-21] MEDS ORDERED: Albuterol/Ipratropium 3.0-0.5 MG/3 ML Neb Soln NEB ONE (12:45)
--- NOTE | 2020-03-21 12:51 | EDM.PDOC ---
ED HPI GENERAL MEDICAL PROBLEM - General Chief Complaint: Cardiovascular Problem Stated Complaint: CHEST PAIN Time Seen by Provider: 03/21/20 11:47 Source of Information: Reports: Patient, Family, RN Notes Reviewed History Limitations: Reports: No Limitations - History of Present Illness INITIAL COMMENTS - FREE TEXT/NARRATIVE: 69-year-old gentleman presents emergency department today complaint of shortness of breath he was initially evaluated in the walk-in clinic work-up included EKG which demonstrates atrial fibrillation left axis deviation there is no ST elevations or depressions Q waves appreciated in V1 V2 this EKG is very similar to EKG done March 19 blood work included CBC CMP reveals slight elevation in his creatinine of 133 this is up from about 1.1 troponin was done upper limits of normal 0.056 undetermined significance. Chest x-ray per radiology read questionable right basilar airspace density pneumonia cannot be excluded.he states his been short of breath for about 2 weeks he has lost weight maybe 5 pounds he says, denies any fevers shortness of breath not at rest mainly with exertion cannot walk 100 yards without having to stop and rest chest tightness that comes and goes he has felt himself wheezing does use an albuterol inhaler daily which provides some relief, INR of 1.9 Headache Pain Score (Numeric/FACES): 6 Chest Pain Score (Numeric/FACES): 5 - Related Data Allergies Allergy/AdvReac Type Severity Reaction Status Date / Time No Known Allergies Allergy Verified 03/21/20 12:11 Home Meds: Home Meds Metoprolol Succinate [Toprol XL] 100 mg PO BID 11/18/12 [History] atorvaSTATin [Lipitor] 40 mg PO BEDTIME 11/18/12 [History] metFORMIN HCl [Metformin HCl] 500 mg PO BIDMEALS 11/18/12 [History] Cholecalciferol (Vitamin D3) [Vitamin D3] 2,000 units PO BID 02/28/14 [History] Oxybutynin [Oxybutynin ER] 10 mg PO DAILY 12/01/14 [History] Multivitamin with Minerals [Multiple Vitamin] 1 tab PO BEDTIME 02/05/15 [History] Omeprazole 20 mg PO DAILY 02/05/15 [History] Calcium Carbonate [Calcium] 600 mg PO BEDTIME 11/29/15 [History] Warfarin [Coumadin] 5 mg PO DAILY 02/12/16 [History] Furosemide 10 mg PO QAM PRN 05/12/16 [History] Magnesium Chloride [Mag-64] 1 tab PO Q12H 10/22/17 [History] Albuterol [Ventolin HFA] 1 - 2 puff INH Q4H PRN 12/31/17 [History] Hydrocortisone [Hydrocortisone 2.5% Crm] 1 applic RECTAL BEDTIME PRN 12/31/17 [History] Acetaminophen [Tylenol] 650 mg PO BID PRN 02/14/20 [History] Gabapentin [Neurontin] 300 mg PO BID 03/21/20 [History] Verapamil [Calan SR] 120 mg PO BEDTIME 03/21/20 [History] Past Medical History HEENT History: Reports: Hard of Hearing, Impaired Vision Other HEENT History: wears glasses, has bilat hearing aides Cardiovascular History: Reports: Afib, Arrhythmia, Blood Clots/VTE/DVT, CAD, High Cholesterol, Hypertension, VA, SOB on Exertion Respiratory History: Reports: Asthma, PE, Pneumonia, Recurrent, Sleep Apnea Other Respiratory History: c-pap Gastrointestinal History: Reports: GERD, Hemorrhoids Genitourinary History: Reports: Chronic Renal Insuffiency, Prostate Disorder Other Genitourinary History: prostate CA, artificial urinary sphincter; needs to be deactived before catheterizing. Spincter at base of bladder Musculoskeletal History: Reports: Fracture Other Musculoskeletal History: left long finger. left shoulder pain. left knee pain Neurological History: Reports: TIA, Other (See Below) Other Neuro History: chronic inflammatory demylinating neuropathy Endocrine/Metabolic History: Reports: Diabetes, Type II, Obesity/BMI 30+ Hematologic History: Reports: Other (See Below) Other Hematologic History: chronic inflammatory neuropathy. CHRONIC INFLAMMATORY DEMYELINATING POLYNEUROPATHY Immunologic History: Reports: Immunosuppression Oncologic (Cancer) History: Reports: Metastatic, Prostate, Other (See Below) Other Oncologic History: chemo, radiation PROSTATES REMOVED Dermatologic History: Reports: Other (See Below) Other Dermatologic History: Left Lower leg bruise - Infectious Disease History Infectious Disease History: Reports: Mumps, Shingles - Past Surgical History Head Surgeries/Procedures: Reports: None HEENT Surgical History: Reports: None Cardiovascular Surgical History: Reports: Cardiac Ablation, Other (See Below) Other Cardiovascular Surgeries/Procedures: ablation. ANGIOGRAM Respiratory Surgical History: Reports: None GI Surgical History: Reports: Appendectomy, Colonoscopy, Hernia Repair/Other Male Surgical History: Reports: Prostatectomy, Other (See Below) Other Male Surgeries/Procedures: artificial sphincter Endocrine Surgical History: Reports: None Neurological Surgical History: Reports: None Musculoskeletal Surgical History: Reports: None Oncologic Surgical History: Reports: None Dermatological Surgical History: Reports: None Social & Family History - Family History Family Medical History: No Pertinent Family History Cardiac: Reports: Hypertension - Tobacco Use Tobacco Use Status *Q: Never Tobacco User - Caffeine Use Caffeine Use: Reports: None - Recreational Drug Use Recreational Drug Use: No ED ROS GENERAL - Review of Systems Review Of Systems: See Below Constitutional: Reports: No Symptoms HEENT: Reports: No Symptoms Respiratory: Reports: Shortness of Breath, Wheezing Cardiovascular: Reports: Chest Pain, Dyspnea on Exertion GI/Abdominal: Reports: No Symptoms ED EXAM, GENERAL - Physical Exam Exam: See Below Exam Limited By: No Limitations General Appearance: Alert, WD/WN, No Apparent Distress Respiratory/Chest: No Respiratory Distress, No Accessory Muscle Use, Wheezing Cardiovascular: Regular Rate, Rhythm, No Murmur GI/Abdominal: Soft, Non-Tender Extremities: No Pedal Edema Course - Vital Signs Last Recorded V/S: Last Vital Signs Temp 97.9 F 03/21/20 12:04 Pulse 83 03/21/20 12:04 Resp 16 03/21/20 12:04 BP 166/103 H 03/21/20 12:04 Pulse Ox 95 03/21/20 12:04 - Orders/Labs/Meds Orders: Active Orders 24 hr Category Date Time Status Peripheral IV Care [RC] . DIRECTED Care 03/21/20 12:52 Active RT Aerosol Therapy [RC] ASDIRECTED Care 03/21/20 12:46 Active Iopamidol [Isovue-370 (76%)] Med 03/21/20 13:15 Active 100 ml IV . DIRECTED Sodium Chloride 0.9% [Normal Saline] 100 ml Med 03/21/20 13:15 Active IV ASDIRECTED Sodium Chloride 0.9% [Saline Flush] Med 03/21/20 12:52 Active 10 ml FLUSH ASDIRECTED PRN Peripheral IV Insertion Adult [OM.PC] Urgent Oth 03/21/20 12:52 Ordered Medication Orders Sodium Chloride (Normal Saline) 100 mls @ 3 mls/sec IV ASDIRECTED [facility] Last Admin: 03/21/20 13:28 Dose: 3 mls/sec Documented by: SHENG Iopamidol (Isovue-370 (76%)) 100 ml IV . DIRECTED EDUARDO Last Admin: 03/21/20 13:28 Dose: 100 ml Documented by: SHENG Sodium Chloride (Saline Flush) 10 ml FLUSH ASDIRECTED PRN PRN Reason: Keep Vein Open Last Admin: 03/21/20 13:28 Dose: 10 ml Documented by: Admin: 03/21/20 12:55 Dose: 10 ml Documented by: CORINAILOR Labs: Laboratory Tests 03/21/20 03/21/20 Range/Units 12:58 12:58 Troponin I 0.051 (0.000-0.056) ng/mL NT-Pro-B Natriuret Pep 1695 H (5-125) pg/mL Meds: Medications Generic Name Dose Route Start Last Admin Trade Name Freq PRN Reason Stop Dose Admin Sodium Chloride 100 mls @ 3 mls/sec 03/21/20 13:15 03/21/20 13:28 Normal Saline IV 3 mls/sec ASDIRECTED EDUARDO Administration Iopamidol 100 ml 03/21/20 13:15 03/21/20 13:28 Isovue-370 (76%) IV 100 ml . DIRECTED EDUARDO Administration Sodium Chloride 10 ml 03/21/20 12:52 03/21/20 13:28 Saline Flush FLUSH 10 ml ASDIRECTED PRN Administration Keep Vein Open Discontinued Medications Generic Name Dose Route Start Last Admin Trade Name Freq PRN Reason Stop Dose Admin Albuterol/Ipratropium 3 ml 03/21/20 12:45 03/21/20 12:55 Duoneb 3.0-0.5 Mg/3 Ml NEB 03/21/20 12:46 3 ml ONETIME ONE Administration Sodium Chloride 10 ml 03/21/20 13:14 Saline Flush FLUSH 03/21/20 13:15 ONETIME ONE Departure - Departure Time of Disposition: 14:13 Disposition: Home, Self-Care 01 Condition: Fair Clinical Impression: Pneumonitis Instructions: Shortness of Breath, Adult, [id number] Referrals: Ilia Adan MD [Primary Care Provider] - Forms: ED Department Discharge Additional Instructions: Try the prednisone once a day for the next 5 days, continue using your albuterol inhaler every couple hours as needed for shortness of breath symptoms, follow-up with your primary care in the next 3 to 5 days for further evaluation call return to the emergency department worsening of symptoms Sepsis Event Note (ED) - Evaluation Sepsis Screening Result: No Definite Risk - Focused Exam Vital Signs: Vital Signs Temp Pulse Resp BP Pulse Ox 03/21/20 12:04 97.9 F 83 16 166/103 H 95 03/21/20 11:44 97.9 F 83 16 166/103 H 95 - My Orders Last 24 Hours: My Active Orders 03/21/20 12:46 RT Aerosol Therapy [RC] ASDIRECTED 03/21/20 12:52 Peripheral IV Care [RC] . DIRECTED Sodium Chloride 0.9% [Saline Flush] 10 ml FLUSH ASDIRECTED PRN Peripheral IV Insertion Adult [OM.PC] Urgent 03/21/20 13:15 Iopamidol [Isovue-370 (76%)] 100 ml IV . DIRECTED Sodium Chloride 0.9% [Normal Saline] 100 ml IV ASDIRECTED - Assessment/Plan Last 24 Hours: My Active Orders 03/21/20 12:46 RT Aerosol Therapy [RC] ASDIRECTED 03/21/20 12:52 Peripheral IV Care [RC] . DIRECTED Sodium Chloride 0.9% [Saline Flush] 10 ml FLUSH ASDIRECTED PRN Peripheral IV Insertion Adult [OM.PC] Urgent 03/21/20 13:15 Iopamidol [Isovue-370 (76%)] 100 ml IV . DIRECTED Sodium Chloride 0.9% [Normal Saline] 100 ml IV ASDIRECTED Plan: Assessment Acuity = acute Site and laterality = pneumonitis Etiology = probably inflammatory Manifestations = dyspnea, wheezing Location of injury = Home Lab values = troponin 0 0.051 this has decreased from prior troponin, BNP slightly elevated at 1300 consistent with fluid overload type pattern CT scan of the chest reveals no pulmonary embolism however groundglass opacities in the base of the lung ross consistent with a pneumonitis Plan I did review lab work CT scan results with him plan is to try prednisone 20 mg once a day for 5 days he had good relief from a DuoNeb provided in the emergency department he is going to continue with his albuterol at home follow-up primary care 3 to 5 days for reevaluation This note was dictated using [employer] voice recognition software please call with any questions on syntax or grammar.
[2020-03-21] MEDS: Sodium Chloride 0.9% 10 ML Syringe FLUSH PRN ×2 (12:55→13:28)
[2020-03-21] MEDS ORDERED: Sodium Chloride 0.9% 10 ML Syringe FLUSH ONE (13:14)
[2020-03-21] MEDS ORDERED: Iopamidol 755 Mg/ML 100 ML Bottle IV SCH (13:15)
[2020-03-21] MEDS ORDERED: Sodium Chloride 0.9% 100 ML IV SCH (13:15)
--- NOTE | 2020-03-21 13:58 | CT ---
Ang Chest CLINICAL HISTORY: SOB TECHNIQUE: Thin section axial contiguous tomographic sections were taken through the chest after bolus IV iodinated contrast administration. Coronal and sagittal images were reconstructed. Auto dosage reduction and iterative reconstruction techniques employed. FINDINGS: No filling defects are identified in the pulmonary arteries. The aorta is free of aneurysm. There is some atheromatous plaque There are scattered groundglass opacities in both lungs more prominent in the lower lobes. There are a few scattered subpleural bulla. There is a 4 x 7 mm pleural-based noncalcified nodule in the right lower lobe on image #84. No mediastinal mass is seen. There is a nonspecific 2.2 cm lymph node in the subcarinal region. There is a pretracheal lymph node measures 10 cm in short dimension. There are scattered small lymph nodes in the hilum and paratracheal region and aortopulmonic window. There are some lymph nodes in both mary. The heart is enlarged. There are no pleural effusions Scans in the upper abdomen show a 4.2 x 2.5 cm cyst with some cyst wall calcification in the upper pole of the left kidney. This is increased in size slightly since 2014. IMPRESSION: No evidence of pulmonary embolus Mild diffuse bilateral groundglass opacities suggest pneumonitis Scattered nonspecific lymph nodes in the mediastinum. These may be reactive nodes. Short-term follow-up should be considered. 4 x 7 mm pleural-based noncalcified nodule. This was not seen in 2014. Follow-up using Fleischner Society criteria recommended Complex cyst upper pole left kidney with slight increase in size since 2014
[2020-03-21 14:31] VITALS: BP 139/91; PULSE 86
== END 2020-03-21 14:31 | disposition home or self-care (01) ==
LOC: JP.ED 11:26
DX: J18.9 Pneumonia, unspecified organism (principal); I48.91 Unspecified atrial fibrillation; I25.10 Atherosclerotic heart disease of native coronary artery without angina pectoris; E78.00 Pure hypercholesterolemia, unspecified; I12.9 Hypertensive chronic kidney disease with stage 1 through stage 4 chronic kidney disease, or unspecified chronic kidney disease; E11.22 Type 2 diabetes mellitus with diabetic chronic kidney disease; N18.9 Chronic kidney disease, unspecified; J45.909 Unspecified asthma, uncomplicated; Z86.711 Personal history of pulmonary embolism; K21.9 Gastro-esophageal reflux disease without esophagitis; E11.9 Type 2 diabetes mellitus without complications; E66.9 Obesity, unspecified; Z79.01 Long term (current) use of anticoagulants; Z79.899 Other long term (current) drug therapy
CPT/HCPCS: 36415; 71275; 83880; 84484; 94640; 99285; Q9967; J7620-GY

== ENCOUNTER 2020-04-10 17:17 | Emergency (ER) | payer MEDICARE, BC ==
[2020-04-10] MEDS ORDERED: Albuterol/Ipratropium 3.0-0.5 MG/3 ML Neb Soln NEB ONE (18:23)
[2020-04-10] MEDS ORDERED: Diltiazem 25 MG/5 ML SDV IVPUSH ONE (18:23)
[2020-04-10] MEDS ORDERED: Sodium Chloride 0.9% 10 ML Syringe FLUSH PRN (18:25)
--- NOTE | 2020-04-10 18:28 | EDM.PDOC ---
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 He states that during the ride home is when he started feeling more short of breath and started to feel palpitations. Subsequently drove from [place] to the emergency department here in [place] for further evaluation. - Related Data Allergies Allergy/AdvReac Type Severity Reaction Status Date / Time No Known Allergies Allergy Verified 04/10/20 18:03 Home Meds: Home Meds Metoprolol Succinate [Toprol XL] 100 mg PO BID 11/18/12 [History] atorvaSTATin [Lipitor] 40 mg PO BEDTIME 11/18/12 [History] metFORMIN HCl [Metformin HCl] 500 mg PO BIDMEALS 11/18/12 [History] Cholecalciferol (Vitamin D3) [Vitamin D3] 2,000 units PO BID 02/28/14 [History] Oxybutynin [Oxybutynin ER] 10 mg PO DAILY 12/01/14 [History] Multivitamin with Minerals [Multiple Vitamin] 1 tab PO BEDTIME 02/05/15 [History] Omeprazole 20 mg PO DAILY 02/05/15 [History] Calcium Carbonate [Calcium] 600 mg PO BEDTIME 11/29/15 [History] Warfarin [Coumadin] 5 mg PO DAILY 02/12/16 [History] Furosemide 10 mg PO QAM PRN 05/12/16 [History] Magnesium Chloride [Mag-64] 1 tab PO Q12H 10/22/17 [History] Albuterol [Ventolin HFA] 1 - 2 puff INH Q4H PRN 12/31/17 [History] Hydrocortisone [Hydrocortisone 2.5% Crm] 1 applic RECTAL BEDTIME PRN 12/31/17 [History] Acetaminophen [Tylenol] 650 mg PO BID PRN 02/14/20 [History] Gabapentin [Neurontin] 300 mg PO BID 03/21/20 [History] Verapamil [Calan SR] 120 mg PO BEDTIME 03/21/20 [History] Past Medical History HEENT History: Reports: Hard of Hearing, Impaired Vision Other HEENT History: wears glasses, has bilat hearing aides Cardiovascular History: Reports: Afib, Arrhythmia, Blood Clots/VTE/DVT, CAD, High Cholesterol, Hypertension, HI, SOB on Exertion Respiratory History: Reports: Asthma, PE, Pneumonia, Recurrent, Sleep Apnea Other Respiratory History: c-pap Gastrointestinal History: Reports: GERD, Hemorrhoids Genitourinary History: Reports: Chronic Renal Insuffiency, Prostate Disorder Other Genitourinary History: prostate CA, artificial urinary sphincter; needs to be deactived before catheterizing. Spincter at base of bladder Musculoskeletal History: Reports: Fracture Other Musculoskeletal History: left long finger. left shoulder pain. left knee pain Neurological History: Reports: TIA, Other (See Below) Other Neuro History: chronic inflammatory demylinating neuropathy Psychiatric History: Reports: None Endocrine/Metabolic History: Reports: Diabetes, Type II, Obesity/BMI 30+ Hematologic History: Reports: Other (See Below) Other Hematologic History: chronic inflammatory neuropathy. CHRONIC INFLAMMATORY DEMYELINATING POLYNEUROPATHY Immunologic History: Reports: Immunosuppression Oncologic (Cancer) History: Reports: Metastatic, Prostate, Other (See Below) Other Oncologic History: chemo, radiation PROSTATES REMOVED Dermatologic History: Reports: Other (See Below) Other Dermatologic History: Left Lower leg bruise - Infectious Disease History Infectious Disease History: Reports: Mumps, Shingles - Past Surgical History Head Surgeries/Procedures: Reports: None Cardiovascular Surgical History: Reports: Cardiac Ablation, Other (See Below) Other Cardiovascular Surgeries/Procedures: ablation. ANGIOGRAM GI Surgical History: Reports: Appendectomy, Colonoscopy, Hernia Repair/Other Male Surgical History: Reports: Prostatectomy, Other (See Below) Other Male Surgeries/Procedures: artificial sphincter Social & Family History - Family History Family Medical History: No Pertinent Family History Cardiac: Reports: Hypertension - Tobacco Use Tobacco Use Status *Q: Never Tobacco User - Caffeine Use Caffeine Use: Reports: None - Recreational Drug Use Recreational Drug Use: No ED ROS GENERAL - Review of Systems Review Of Systems: See Below Constitutional: Reports: No Symptoms HEENT: Reports: No Symptoms Respiratory: Reports: Shortness of Breath Cardiovascular: Reports: Chest Pain, Palpitations GI/Abdominal: Reports: No Symptoms ED EXAM, GENERAL - Physical Exam Exam: See Below Exam Limited By: No Limitations General Appearance: Alert, Mild Distress Respiratory/Chest: Rhonchi, Wheezing, Accessory Muscle Use, Other (Hypnic) Cardiovascular: Tachycardia, Irregularly Irregular GI/Abdominal: Soft, Non-Tender Course - Vital Signs Last Recorded V/S: Last Vital Signs Temp 102.6 F H 04/10/20 19:25 Pulse 134 H 04/10/20 19:25 Resp 26 H 04/10/20 19:25 BP 126/95 H 04/10/20 19:25 Pulse Ox 88 L 04/10/20 19:25 - Orders/Labs/Meds Orders: Active Orders 24 hr Category Date Time Status Cardiac Monitoring [RC] .As Directed Care 04/10/20 18:25 Active EKG Documentation Completion [RC] ASDIRECTED Care 04/10/20 18:25 Active Peripheral IV Care [RC] . DIRECTED Care 04/10/20 18:25 Active RT Aerosol Therapy [RC] ASDIRECTED Care 04/10/20 18:24 Active Vital Signs [RC] Q1H Care 04/10/20 19:25 Ordered Chest 1V Frontal [CR] Stat Exams 04/10/20 18:25 Taken CORONAVIRUS COVID-19, PIERRE Stat Lab 04/10/20 19:23 Ordered CULTURE BLOOD [BC] Urgent Lab 04/10/20 19:25 Ordered CULTURE BLOOD [BC] Urgent Lab 04/10/20 19:25 Ordered PROCALCITONIN [CHEM] Stat Lab 04/10/20 19:25 Ordered Azithromycin [Zithromax] 500 mg Med 04/10/20 19:37 Ordered Sodium Chloride 0.9% [Normal Saline] 250 ml IV ONETIME Sodium Chloride 0.9% [Normal Saline] 1,000 ml Med 04/10/20 18:45 Active IV ASDIRECTED Sodium Chloride 0.9% [Saline Flush] Med 04/10/20 18:25 Active 10 ml FLUSH ASDIRECTED PRN cefTRIAXone [Rocephin] 1 gm Med 04/10/20 19:37 Ordered Sodium Chloride 0.9% [Normal Saline] 50 ml IV ONETIME Blood Culture x2 Reflex Set [OM.PC] Urgent Oth 04/10/20 19:25 Ordered Peripheral IV Insertion Adult [OM.PC] Stat Oth 04/10/20 18:25 Ordered Saline Lock Insert [OM.PC] Stat Oth 04/10/20 18:25 Ordered EKG 12 Lead [EK] Stat Ther 04/10/20 18:25 Ordered Medication Orders Sodium Chloride (Normal Saline) 1,000 mls @ 999 mls/hr IV ASDIRECTED EDUARDO Last Infusion: 04/10/20 19:37 Dose: 999 mls/hr Documented by: Admin: 04/10/20 18:40 Dose: 75 mls/hr Documented by: ISHAN Azithromycin 500 mg/ Sodium (Chloride) 250 mls @ 250 mls/hr IV ONETIME ONE Stop: 04/10/20 20:36 Ceftriaxone Sodium 1 gm/ (Sodium Chloride) 50 mls @ 100 mls/hr IV ONETIME ONE Stop: 04/10/20 20:06 Sodium Chloride (Saline Flush) 10 ml FLUSH ASDIRECTED PRN PRN Reason: Keep Vein Open Last Admin: 04/10/20 18:40 Dose: 10 ml Documented by: ISHAN Labs: Laboratory Tests 04/10/20 04/10/20 04/10/20 Range/Units 18:25 18:25 18:25 WBC 9.8 (4.5-11.0) K/uL RBC 4.47 (4.30-5.90) M/uL Hgb 13.8 D (12.0-15.0) g/dL Hct 43.5 (40.0-54.0) % MCV 97 (80-98) fL MCH 31 (27-31) pg MCHC 32 (32-36) % Plt Count 169 (150-400) K/uL Neut % (Auto) 82 H (36-66) % Lymph % (Auto) 12 L (24-44) % Walton % (Auto) 5 (2-6) % Eos % (Auto) 1 L (2-4) % Baso % (Auto) 0 (0-1) % PT (9.5-12.0) sec INR (0.80-1.20) Sodium 138 L (140-148) mmol/L Potassium 4.4 (3.6-5.2) mmol/L Chloride 104 (100-108) mmol/L Carbon Dioxide 24 (21-32) mmol/L Anion Gap 14.4 H (5.0-14.0) mmol/L BUN 27 H (7-18) mg/dL Creatinine 1.2 (0.8-1.3) mg/dL Est Cr Clr Drug Dosing 61.79 mL/min Estimated GFR (MDRD) > 60 (>60) Glucose 145 H (74-106) mg/dL Lactic Acid 0.9 (0.4-2.0) mmol/L Calcium 8.5 (8.5-10.1) mg/dL Total Bilirubin 1.0 (0.2-1.0) mg/dL AST 53 H (15-37) U/L ALT 79 H (12-78) U/L Alkaline Phosphatase 79 (46-116) U/L Troponin I 0.105 H* (0.000-0.056) ng/mL C-Reactive Protein (0.0-0.3) mg/dL NT-Pro-B Natriuret Pep (5-125) pg/mL Total Protein 7.4 (6.4-8.2) g/dL Albumin 2.9 L (3.4-5.0) g/dL Globulin 4.5 H (2.3-3.5) g/dL Albumin/Globulin Ratio 0.6 L (1.2-2.2) 04/10/20 04/10/20 04/10/20 Range/Units 18:25 18:25 18:25 WBC (4.5-11.0) K/uL RBC (4.30-5.90) M/uL Hgb (12.0-15.0) g/dL Hct (40.0-54.0) % MCV (80-98) fL MCH (27-31) pg MCHC (32-36) % Plt Count (150-400) K/uL Neut % (Auto) (36-66) % Lymph % (Auto) (24-44) % Walton % (Auto) (2-6) % Eos % (Auto) (2-4) % Baso % (Auto) (0-1) % PT 19.6 H (9.5-12.0) sec INR 1.82 H (0.80-1.20) Sodium (140-148) mmol/L Potassium (3.6-5.2) mmol/L Chloride (100-108) mmol/L Carbon Dioxide (21-32) mmol/L Anion Gap (5.0-14.0) mmol/L BUN (7-18) mg/dL Creatinine (0.8-1.3) mg/dL Est Cr Clr Drug Dosing mL/min Estimated GFR (MDRD) (>60) Glucose (74-106) mg/dL Lactic Acid (0.4-2.0) mmol/L Calcium (8.5-10.1) mg/dL Total Bilirubin (0.2-1.0) mg/dL AST (15-37) U/L ALT (12-78) U/L Alkaline Phosphatase (46-116) U/L Troponin I (0.000-0.056) ng/mL C-Reactive Protein 0.86 H (0.0-0.3) mg/dL NT-Pro-B Natriuret Pep 2049 H (5-125) pg/mL Total Protein (6.4-8.2) g/dL Albumin (3.4-5.0) g/dL Globulin (2.3-3.5) g/dL Albumin/Globulin Ratio (1.2-2.2) Meds: Medications Generic Name Dose Route Start Last Admin Trade Name Freq PRN Reason Stop Dose Admin Sodium Chloride 1,000 mls @ 999 mls/hr 04/10/20 18:45 04/10/20 19:37 Normal Saline IV 999 mls/hr ASDIRECTED EDUARDO Infusion Azithromycin 500 mg/ Sodium 250 mls @ 250 mls/hr 04/10/20 19:37 Chloride IV 04/10/20 20:36 ONETIME ONE Ceftriaxone Sodium 1 gm/ 50 mls @ 100 mls/hr 04/10/20 19:37 Sodium Chloride IV 04/10/20 20:06 ONETIME ONE Sodium Chloride 10 ml 04/10/20 18:25 04/10/20 18:40 Saline Flush FLUSH 10 ml ASDIRECTED PRN Administration Keep Vein Open Discontinued Medications Generic Name Dose Route Start Last Admin Trade Name Freq PRN Reason Stop Dose Admin Acetaminophen 650 mg 04/10/20 19:37 Tylenol PO 04/10/20 19:38 NOW ONE Albuterol/Ipratropium 3 ml 04/10/20 18:23 04/10/20 18:32 Duoneb 3.0-0.5 Mg/3 Ml NEB 04/10/20 18:24 3 ml ONETIME ONE Administration Diltiazem HCl 25 mg 04/10/20 18:23 04/10/20 18:35 Diltiazem IVPUSH 04/10/20 18:24 25 mg ONETIME ONE Administration Nitroglycerin 0.4 mg 04/10/20 19:09 04/10/20 19:22 Nitrostat SL 04/10/20 19:10 0.4 mg ONETIME ONE Administration Departure - Departure Time of Disposition: 19:46 Disposition: DC/Tfer to Acute Hospital 02 Condition: Fair Clinical Impression: Community acquired pneumonia Qualifiers: Laterality: right Lung location: lower lobe of lung Qualified Code(s): J18.9 - Pneumonia, unspecified organism - Discharge Information Referrals: Ilia Adan MD [Primary Care Provider] - Forms: ED Department Discharge Sepsis Event Note (ED) - Evaluation Sepsis Screening Result: Possible Sepsis Risk - Focused Exam Vital Signs: Vital Signs Temp Temp Pulse Resp BP BP Pulse Ox 04/10/20 19:25 102.6 F H 134 H 26 H 126/95 H 88 L 04/10/20 19:24 102.6 F H 140 H 25 H 121/86 91 L 04/10/20 19:22 121/86 04/10/20 19:21 102.6 F H 140 H 25 H 121/86 91 L 04/10/20 18:38 103 H 132/90 88 L 04/10/20 18:15 136 H 40 H 138/92 H 92 L 04/10/20 18:00 99.3 F 136 H 40 H 169/115 H 87 L 04/10/20 17:58 136 H 40 H 169/115 H 87 L 04/10/20 17:39 99.3 F 102 H 36 H 171/123 H 97 - My Orders Last 24 Hours: My Active Orders 04/10/20 18:24 RT Aerosol Therapy [RC] ASDIRECTED 04/10/20 18:25 Cardiac Monitoring [RC] .As Directed EKG Documentation Completion [RC] ASDIRECTED Peripheral IV Care [RC] . DIRECTED Chest 1V Frontal [CR] Stat Sodium Chloride 0.9% [Saline Flush] 10 ml FLUSH ASDIRECTED PRN Peripheral IV Insertion Adult [OM.PC] Stat Saline Lock Insert [OM.PC] Stat EKG 12 Lead [EK] Stat 04/10/20 18:45 Sodium Chloride 0.9% [Normal Saline] 1,000 ml IV ASDIRECTED 04/10/20 19:23 CORONAVIRUS COVID-19, PIERRE Stat 04/10/20 19:25 Vital Signs [RC] Q1H CULTURE BLOOD [BC] Urgent CULTURE BLOOD [BC] Urgent PROCALCITONIN [CHEM] Stat Blood Culture x2 Reflex Set [OM.PC] Urgent 04/10/20 19:37 Azithromycin [Zithromax] 500 mg Sodium Chloride 0.9% [Normal Saline] 250 ml IV ONETIME cefTRIAXone [Rocephin] 1 gm Sodium Chloride 0.9% [Normal Saline] 50 ml IV ONETIME - Assessment/Plan Last 24 Hours: My Active Orders 04/10/20 18:24 RT Aerosol Therapy [RC] ASDIRECTED 04/10/20 18:25 Cardiac Monitoring [RC] .As Directed EKG Documentation Completion [RC] ASDIRECTED Peripheral IV Care [RC] . DIRECTED Chest 1V Frontal [CR] Stat Sodium Chloride 0.9% [Saline Flush] 10 ml FLUSH ASDIRECTED PRN Peripheral IV Insertion Adult [OM.PC] Stat Saline Lock Insert [OM.PC] Stat EKG 12 Lead [EK] Stat 04/10/20 18:45 Sodium Chloride 0.9% [Normal Saline] 1,000 ml IV ASDIRECTED 04/10/20 19:23 CORONAVIRUS COVID-19, PIERRE Stat 04/10/20 19:25 Vital Signs [RC] Q1H CULTURE BLOOD [BC] Urgent CULTURE BLOOD [BC] Urgent PROCALCITONIN [CHEM] Stat Blood Culture x2 Reflex Set [OM.PC] Urgent 04/10/20 19:37 Azithromycin [Zithromax] 500 mg Sodium Chloride 0.9% [Normal Saline] 250 ml IV ONETIME cefTRIAXone [Rocephin] 1 gm Sodium Chloride 0.9% [Normal Saline] 50 ml IV ONETIME Plan: Assessment Acuity = acute Site and laterality = community-acquired pneumonia Etiology = probable bacterial cause Manifestations = hypoxic, dyspnea, tachycardia Location of injury = Home Lab values = CBC unremarkable INR subtherapeutic 1.2 AST elevated 53 ALT elevated 79 consistent elevated liver enzymes troponin elevated 0.105 probably related to demand ischemia with the tachycardia and recent cardioversion, BNP elevated at 2048 chest x-ray consistent with infiltrate right lower lobe official read radiology is pending, EKG demonstrates a sinus rhythm with irregularities P waves are present Plan Call discussed case with Dr. Myers emergency room physician [facility] at 1930 blood cultures have been drawn antibiotics a azithromycin and Rocephin have been initiated he is receiving 1 L bolus of fluid he will be transferred via EMS ground This note was dictated using [employer] voice recognition software please call with any questions on syntax or grammar.
[2020-04-10] MEDS ORDERED: Sodium Chloride 0.9% 1,000 ML IV SCH (18:45)
[2020-04-10] MEDS ORDERED: Nitroglycerin 0.4 MG Tab.SL SL ONE (19:09)
[2020-04-10] MEDS ORDERED: Acetaminophen 325 MG Tab PO ONE (19:37)
[2020-04-10] MEDS ORDERED: Azithromycin 500 MG in Sodium Chloride 0.9% 250 ML IV ONE (19:37)
[2020-04-10] MEDS ORDERED: cefTRIAXone 1 GM in Sodium Chloride 0.9% 50 ML IV ONE (19:37)
[2020-04-10] MEDS ORDERED: Diltiazem 100 MG in Sodium Chloride 0.9% 100 ML IV SCH (20:15)
[2020-04-10 20:22] VITALS: BP 151/107; PULSE 146
[2020-04-10] MEDS ORDERED: Warfarin 5 MG Tab PO ONE (20:23)
--- NOTE | 2020-04-11 09:01 | CR ---
CHEST: Portable 04/10/2020 at 1906 CLINICAL HISTORY:Chest pain COMPARISON:CT 03/21/2020 FINDINGS: The heart is enlarged. Patient has a left subclavian catheter. The tip is in the superior vena cava atrial junction. There is no pneumothorax. There is patchy infiltrate in the right lung base. This is new since prior study. There is some generalized increased lung markings. Some is due to patient's large body habitus. IMPRESSION: Cardiomegaly Right lower lobe infiltrate. This is most likely pneumonia. This is superimposed over a generalized increase in lung markings which may represent pneumonitis but interstitial edema from CHF is not excluded.
== END 2020-04-10 21:15 ==
LOC: JP.ED 17:17
DX: J18.9 Pneumonia, unspecified organism (principal); I48.91 Unspecified atrial fibrillation; I25.10 Atherosclerotic heart disease of native coronary artery without angina pectoris; E78.00 Pure hypercholesterolemia, unspecified; I25.2 Old myocardial infarction; J45.909 Unspecified asthma, uncomplicated; I12.9 Hypertensive chronic kidney disease with stage 1 through stage 4 chronic kidney disease, or unspecified chronic kidney disease; N18.9 Chronic kidney disease, unspecified; E11.22 Type 2 diabetes mellitus with diabetic chronic kidney disease; K21.9 Gastro-esophageal reflux disease without esophagitis; E66.9 Obesity, unspecified; Z68.36 Body mass index [BMI] 36.0-36.9, adult; Z79.01 Long term (current) use of anticoagulants; Z95.5 Presence of coronary angioplasty implant and graft; Z86.73 Personal history of transient ischemic attack (TIA), and cerebral infarction without residual deficits; Z79.84 Long term (current) use of oral hypoglycemic drugs; Z86.711 Personal history of pulmonary embolism
CPT/HCPCS: 36415; 71045; 80053; 83605; 83880; 84145; 84484; 85025; 85610; 86140; 87040; 93005; 94640; 96365; 96367; 96368; 96376; 99285; A9270; J0456; J0696; J3490; J7030; J7050; 93010; J7620-GY

== ENCOUNTER 2020-07-13 19:06 | Inpatient (IN) | payer MEDICARE, BC ==
--- NOTE | 2020-07-13 20:48 | EDM.PDOC ---
ED HPI GENERAL MEDICAL PROBLEM - General Chief Complaint: Respiratory Problem Stated Complaint: COUGH, DIZZY, WEAK Time Seen by Provider: 07/13/20 19:23 Source of Information: Reports: Patient History Limitations: Reports: No Limitations - History of Present Illness INITIAL COMMENTS - FREE TEXT/NARRATIVE: Ankush is a 69-year-old male presenting to the ED for evaluation of acute weakness, dizziness, shortness of breath and chills following an elective cardioversion today at [facility] for atrial flutter. After the discharge, the patient started to become more tachypneic and dyspneic. He was experiencing more subjective shortness of breath. He started to have chills and feel more fatigue. He then started to develop generalized body aches. The patient had a negative Covid test on Thursday preprocedure. Patient has a history of developing pneumonia shortly after his version in March 2020 with similar results. At that time he was hospitalized for several days with IV antibiotics and O2 supplementation. He does not normally wear oxygen at home and although he denies any history of asthma or emphysema, his chart does dictate that he had bronchospasm. - Related Data Allergies Allergy/AdvReac Type Severity Reaction Status Date / Time No Known Allergies Allergy Verified 07/13/20 19:25 Home Meds: Home Meds atorvaSTATin [Lipitor] 40 mg PO BEDTIME 11/18/12 [History] metFORMIN HCl [Metformin HCl] 1,000 mg PO BIDMEALS 11/18/12 [History] Cholecalciferol (Vitamin D3) [Vitamin D3] 2,000 units PO BID 02/28/14 [History] Oxybutynin [Oxybutynin ER] 10 mg PO DAILY 12/01/14 [History] Multivitamin with Minerals [Multiple Vitamin] 1 tab PO BEDTIME 02/05/15 [History] Omeprazole 20 mg PO DAILY 02/05/15 [History] Calcium Carbonate [Calcium] 600 mg PO BEDTIME 11/29/15 [History] Warfarin [Coumadin] 5 - 7.5 mg PO DAILY 02/12/16 [History] Furosemide 20 mg PO QAM 05/12/16 [History] Magnesium Chloride [Mag-64] 3 tab PO BID 10/22/17 [History] Albuterol [Ventolin HFA] 1 - 2 puff INH Q4H PRN 12/31/17 [History] Acetaminophen [Tylenol] 650 mg PO BID PRN 02/14/20 [History] Gabapentin [Neurontin] 300 mg PO BID 03/21/20 [History] Verapamil [Calan SR] 120 mg PO BEDTIME 03/21/20 [History] Amiodarone [Cordarone] 200 mg PO DAILY 05/29/20 [History] L.acidoph,Paracasei, B.lactis [Probiotic] 1 each PO DAILY 06/12/20 [History] Melatonin 5 mg PO BEDTIME 06/12/20 [History] Metoprolol Tartrate [Lopressor] 100 mg PO BID 07/13/20 [History] Past Medical History HEENT History: Reports: Hard of Hearing, Impaired Vision Other HEENT History: wears glasses, has bilat hearing aides Cardiovascular History: Reports: Afib, Arrhythmia, Blood Clots/VTE/DVT, CAD, High Cholesterol, Hypertension, [place], SOB on Exertion Respiratory History: Reports: Asthma, PE, Pneumonia, Recurrent, Sleep Apnea Other Respiratory History: c-pap Gastrointestinal History: Reports: GERD, Hemorrhoids Genitourinary History: Reports: Chronic Renal Insuffiency, Prostate Disorder Other Genitourinary History: prostate CA, artificial urinary sphincter; needs to be deactived before catheterizing. Spincter at base of bladder Musculoskeletal History: Reports: Fracture Other Musculoskeletal History: left long finger. left shoulder pain. left knee pain Neurological History: Reports: TIA, Other (See Below) Other Neuro History: chronic inflammatory demylinating neuropathy Psychiatric History: Reports: None Endocrine/Metabolic History: Reports: Diabetes, Type II, Obesity/BMI 30+, Vitamin D Deficiency Hematologic History: Reports: Anticoagulation Therapy, Other (See Below) Other Hematologic History: chronic inflammatory neuropathy. CHRONIC INFLAMMATORY DEMYELINATING POLYNEUROPATHY Immunologic History: Reports: Immunosuppression Oncologic (Cancer) History: Reports: Metastatic, Prostate, Other (See Below) Other Oncologic History: chemo, radiation PROSTATES REMOVED Dermatologic History: Reports: Other (See Below) Other Dermatologic History: Left Lower leg bruise - Infectious Disease History Infectious Disease History: Reports: Chicken Pox, Mumps, Shingles - Past Surgical History Head Surgeries/Procedures: Reports: None HEENT Surgical History: Reports: None Cardiovascular Surgical History: Reports: Cardiac Ablation, Other (See Below) Other Cardiovascular Surgeries/Procedures: ablation. ANGIOGRAM Respiratory Surgical History: Reports: None GI Surgical History: Reports: Appendectomy, Colonoscopy, Hernia Repair/Other Male Surgical History: Reports: Prostatectomy, Other (See Below) Other Male Surgeries/Procedures: artificial sphincter Endocrine Surgical History: Reports: None Neurological Surgical History: Reports: None Musculoskeletal Surgical History: Reports: Arthroscopic Knee Oncologic Surgical History: Reports: None Social & Family History - Family History Family Medical History: No Pertinent Family History Cardiac: Reports: Hypertension - Tobacco Use Tobacco Use Status *Q: Never Tobacco User - Caffeine Use Caffeine Use: Reports: None - Alcohol Use Days Per Week of Alcohol Use: 2 Number of Drinks Per Day: 1 Total Drinks Per Week: 2 - Recreational Drug Use Recreational Drug Use: No ED ROS GENERAL - Review of Systems Review Of Systems: See Below Constitutional: Reports: Chills, Malaise, Weakness, Fatigue HEENT: Reports: No Symptoms Respiratory: Reports: Shortness of Breath, Cough. Denies: Sputum Cardiovascular: Reports: No Symptoms Endocrine: Reports: No Symptoms GI/Abdominal: Reports: No Symptoms : Reports: No Symptoms Musculoskeletal: Reports: No Symptoms Neurological: Reports: Dizziness Psychiatric: Reports: No Symptoms Hematologic/Lymphatic: Reports: No Symptoms Immunologic: Reports: No Symptoms ED EXAM, GENERAL - Physical Exam Exam: See Below Exam Limited By: No Limitations General Appearance: Alert, Anxious, Moderate Distress, Obese Eye Exam: Bilateral Eye: EOMI, PERRL Throat/Mouth: Normal Inspection, Normal Oropharynx, Normal Voice, No Airway Compromise Head: Atraumatic, Normocephalic Neck: Normal Inspection, Supple Respiratory/Chest: Respiratory Distress (Tachypnea), Rhonchi (Coarse rhonchi right greater than left base), Accessory Muscle Use (Patient is essentially a br eathing). No: Wheezing Cardiovascular: Normal Peripheral Pulses, Regular Rate, Rhythm, Other (2+ bilateral lower extremity edema. Chronic venous stasis changes in the left l eg.) Peripheral Pulses: 2+: Radial (L), Radial (R), Posterior Tibial (L), Posterior Tibial (R) Back Exam: Normal Inspection, Full Range of Motion Extremities: Normal Range of Motion, Pedal Edema (2+ bilateral pedal edema), Other (Chronic venous stasis left leg) Neurological: Alert, Oriented, Normal Cognition, No Motor/Sensory Deficits Psychiatric: Normal Affect, Normal Mood Skin Exam: Warm, Dry Lymphatic: No Adenopathy Course - Vital Signs Last Recorded V/S: Last Vital Signs Temp 36.6 C 07/13/20 19:20 Pulse 79 07/13/20 21:45 Resp 20 07/13/20 21:45 BP 155/97 H 07/13/20 21:45 Pulse Ox 95 07/13/20 21:45 - Orders/Labs/Meds Orders: Active Orders 24 hr Category Date Time Status CULTURE BLOOD [BC] Urgent Lab 07/13/20 20:50 Received CULTURE BLOOD [BC] Urgent Lab 07/13/20 20:50 Received Heparin Sodium [Heparin Lock Flush 100 Units/ML] Med 07/13/20 19:46 Active 500 units FLUSH ASDIRECTED PRN Piperacillin/Tazobactam [Zosyn] 4.5 gm Med 07/13/20 22:05 Ordered Sodium Chloride 0.9% [Normal Saline] 100 ml IV ONETIME Vancomycin 1 gm Med 07/13/20 22:05 Ordered Sodium Chloride 0.9% [Normal Saline] 250 ml IV ONETIME Blood Culture x2 Reflex Set [OM.PC] Urgent Oth 07/13/20 20:49 Ordered Medication Orders Heparin Sodium (Porcine) (Heparin Sodium 100 Units/Ml 5 Ml Syringe) 500 units FLUSH ASDIRECTED PRN PRN Reason: central line Last Admin: 07/13/20 19:50 Dose: 500 units Documented by: ZINA Labs: Laboratory Tests 07/13/20 07/13/20 07/13/20 Range/Units 19:51 19:51 19:51 WBC 8.2 (4.5-11.0) K/uL RBC 4.31 (4.30-5.90) M/uL Hgb 13.0 (12.0-15.0) g/dL Hct 40.7 (40.0-54.0) % MCV 94 (80-98) fL MCH 30 (27-31) pg MCHC 32 (32-36) % Plt Count 182 (150-400) K/uL Neut % (Auto) 75 H (36-66) % Lymph % (Auto) 14 L (24-44) % [place] % (Auto) 11 H (2-6) % Eos % (Auto) 1 L (2-4) % Baso % (Auto) 0 (0-1) % D-Dimer, Quantitative 172.19 (0.0-500.0) ng/mL Sodium 141 (140-148) mmol/L Potassium 4.6 (3.6-5.2) mmol/L Chloride 105 (100-108) mmol/L Carbon Dioxide 25 (21-32) mmol/L Anion Gap 10.8 (5.0-14.0) mmol/L BUN 30 H (7-18) mg/dL Creatinine 1.3 (0.8-1.3) mg/dL Est Cr Clr Drug Dosing 57.92 mL/min Estimated GFR (MDRD) 55 L (>60) Glucose 142 H (74-106) mg/dL Lactic Acid (0.4-2.0) mmol/L Calcium 8.7 (8.5-10.1) mg/dL Total Bilirubin 0.6 (0.2-1.0) mg/dL AST 32 (15-37) U/L ALT 46 (12-78) U/L Alkaline Phosphatase 84 (46-116) U/L Troponin I 0.033 (0.000-0.056) ng/mL C-Reactive Protein 0.45 H (0.0-0.3) mg/dL NT-Pro-B Natriuret Pep 1194 H (5-125) pg/mL Total Protein 7.4 (6.4-8.2) g/dL Albumin 3.0 L (3.4-5.0) g/dL Globulin 4.4 H (2.3-3.5) g/dL Albumin/Globulin Ratio 0.7 L (1.2-2.2) 07/13/20 Range/Units 20:52 WBC (4.5-11.0) K/uL RBC (4.30-5.90) M/uL Hgb (12.0-15.0) g/dL Hct (40.0-54.0) % MCV (80-98) fL MCH (27-31) pg MCHC (32-36) % Plt Count (150-400) K/uL Neut % (Auto) (36-66) % Lymph % (Auto) (24-44) % [place] % (Auto) (2-6) % Eos % (Auto) (2-4) % Baso % (Auto) (0-1) % D-Dimer, Quantitative (0.0-500.0) ng/mL Sodium (140-148) mmol/L Potassium (3.6-5.2) mmol/L Chloride (100-108) mmol/L Carbon Dioxide (21-32) mmol/L Anion Gap (5.0-14.0) mmol/L BUN (7-18) mg/dL Creatinine (0.8-1.3) mg/dL Est Cr Clr Drug Dosing mL/min Estimated GFR (MDRD) (>60) Glucose (74-106) mg/dL Lactic Acid 1.1 (0.4-2.0) mmol/L Calcium (8.5-10.1) mg/dL Total Bilirubin (0.2-1.0) mg/dL AST (15-37) U/L ALT (12-78) U/L Alkaline Phosphatase (46-116) U/L Troponin I (0.000-0.056) ng/mL C-Reactive Protein (0.0-0.3) mg/dL NT-Pro-B Natriuret Pep (5-125) pg/mL Total Protein (6.4-8.2) g/dL Albumin (3.4-5.0) g/dL Globulin (2.3-3.5) g/dL Albumin/Globulin Ratio (1.2-2.2) Meds: Medications Generic Name Dose Route Start Last Admin Trade Name Freq PRN Reason Stop Dose Admin Heparin Sodium (Porcine) 500 units 07/13/20 19:46 07/13/20 19:50 Heparin Sodium 100 Units/Ml 5 Ml Syringe FLUSH 500 units ASDIRECTED PRN Administration central line Discontinued Medications Generic Name Dose Route Start Last Admin Trade Name Freq PRN Reason Stop Dose Admin Heparin Sodium (Porcine) Confirm 07/13/20 19:48 07/13/20 19:50 Heparin Sodium 100 Units/Ml 5 Ml Syringe Administered 07/13/20 19:49 Not Given Dose 500 units .ROUTE .STK-MED ONE - Radiology Interpretation Free Text/Narrative:: I reviewed the two-view chest x-ray and compared it to his previous on 12 April 2020. On both he has a right lower lobe infiltrate and cardiomegaly. I am sending the images to [facility] for formal review as I am concerned this is a recurrence of pneumonia versus pulmonary edema status post cardioversion. I reviewed the report from [facility] on the chest x-ray 2 view showing stable left infusion port with central venous line at the superior vena cava. Persistent alveolar airspace opacity in the medial right lung base. Differential diagnosis consideration: Chronic pneumonia (lipoid) could be secondary to her aspiration, chronic obstructive pneumonia secondary to endobronchial lesion, recurrent area of right basilar pneumonia, asymmetric unilateral distribution may be less favorable for pulmonary edema or could represent asymmetric pulmonary edema. - Re-Assessments/Exams Free Text/Narrative Re-Assessment/Exam: 07/13/20 22:08 it appears the patient has a newly developed right lower lobe pneumonia or flash pulmonary edema following his cardioversion today. It is possible he may have aspirated during the cardioversion so we will start him on Zosyn 4.5 g IV and vancomycin 1 g IV. Blood cultures have been obtained. I did discuss the case with Dr. Villareal who will arrange for admission of the patient. He is vitally stable and I suspect will do well on the floor with oxygen and IV antibiotics. Departure - Departure Time of Disposition: 22:09 Disposition: Admitted As Inpatient 67 Clinical Impression: Right lower lobe pneumonia Qualifiers: Pneumonia type: aspiration pneumonia Aspiration pneumonia type: unspecified Qualified Code(s): J69.0 - Pneumonitis due to inhalation of food and vomit - Discharge Information Referrals: Ilia Adan MD [Primary Care Provider] - Forms: ED Department Discharge Sepsis Event Note (ED) - Evaluation Sepsis Screening Result: No Definite Risk - Focused Exam Vital Signs: Vital Signs Temp Pulse Resp BP Pulse Ox 07/13/20 21:45 79 20 155/97 H 95 07/13/20 21:12 80 25 H 146/87 H 93 L 07/13/20 20:53 80 19 169/98 H 93 L 07/13/20 20:22 82 25 H 183/111 H 91 L 07/13/20 19:40 79 169/119 H 07/13/20 19:20 36.6 C 81 14 176/119 H 93 L - Problem List & Annotations (1) Right lower lobe pneumonia SNOMED Code(s): 121999020 Code(s): J18.9 - PNEUMONIA, UNSPECIFIED ORGANISM Status: Acute Priority: High Current Visit: Yes Qualifiers: Pneumonia type: aspiration pneumonia Aspiration pneumonia type: unspecified Qualified Code(s): J69.0 - Pneumonitis due to inhalation of food and vomit - Problem List Review Problem List Initiated/Reviewed/Updated: Yes - My Orders Last 24 Hours: My Active Orders 07/13/20 19:46 Heparin Sodium [Heparin Lock Flush 100 Units/ML] 500 units FLUSH ASDIRECTED PRN 07/13/20 20:49 Blood Culture x2 Reflex Set [OM.PC] Urgent 07/13/20 20:50 CULTURE BLOOD [BC] Urgent CULTURE BLOOD [BC] Urgent 07/13/20 22:05 Piperacillin/Tazobactam [Zosyn] 4.5 gm Sodium Chloride 0.9% [Normal Saline] 100 ml IV ONETIME Vancomycin 1 gm Sodium Chloride 0.9% [Normal Saline] 250 ml IV ONETIME - Assessment/Plan Last 24 Hours: My Active Orders 07/13/20 19:46 Heparin Sodium [Heparin Lock Flush 100 Units/ML] 500 units FLUSH ASDIRECTED PRN 07/13/20 20:49 Blood Culture x2 Reflex Set [OM.PC] Urgent 07/13/20 20:50 CULTURE BLOOD [BC] Urgent CULTURE BLOOD [BC] Urgent 07/13/20 22:05 Piperacillin/Tazobactam [Zosyn] 4.5 gm Sodium Chloride 0.9% [Normal Saline] 100 ml IV ONETIME Vancomycin 1 gm Sodium Chloride 0.9% [Normal Saline] 250 ml IV ONETIME
--- NOTE | 2020-07-13 21:45 | CRLCR ---
INDICATION: Dyspnea. No additional clinical information. TECHNIQUE: Portable chest. COMPARISON: April 10, 2020. Chest radiograph March 21, 2020 CT scan of the chest. IMPRESSION: Stable left infusion port with central venous line at the superior vena cava. Persistent alveolar airspace opacity medial right lung base. Differential diagnosis consideration: Chronic pneumonia (lipoid) could be secondary to aspiration Chronic obstructive pneumonia send it secondary to endobronchial lesion correlate with any known endobronchial lesion or history of neoplasm. Recurrent area of right basilar pneumonia Asymmetrical unilateral distribution may be less favorable for pulmonary edema or could represent asymmetrical pulmonary edema. Pulmonary consult and follow-up CT evaluation suggested. Abnormality is new since previous CT chest March 21, 2020. Left lung is clear. Heart is stable in size. No effusion. CT follow-up correlation advised. Dictated by Rambo Dennis MD @ 07/13/2020 9:42:[address] Rambo Dennis @ Jul 13 2020 9:42PM
[2020-07-13] MEDS ORDERED: Piperacillin/Tazobactam 4.5 GM in Sodium Chloride 0.9% 100 ML IV ONE (22:05)
[2020-07-13] MEDS ORDERED: 50% Dextrose in Water 50 ML Syringe IVPUSH PRN (22:27)
[2020-07-13] MEDS ORDERED: Glucagon,Human Recombinant 1 MG Vial IM PRN (22:27)
[2020-07-13] MEDS ORDERED: hydrALAZINE 20 MG/ML SDV IVPUSH PRN (22:28)
[2020-07-13] MEDS ORDERED: Piperacillin/Tazobactam 3.375 GM in Sodium Chloride 0.9% 50 ML IV SCH (22:30)
[2020-07-13] MEDS ORDERED: Sodium Chloride 0.9% 10 ML Syringe FLUSH ONE (22:33)
[2020-07-13] MEDS ORDERED: Sodium Chloride 0.9% 100 ML IV SCH (22:45)
[2020-07-13] MEDS ORDERED: Iopamidol 612 MG/ML 100 ML Bottle IV SCH (22:45)
[2020-07-13] MEDS ORDERED: Sodium Chloride 0.9% 10 ML Syringe FLUSH PRN (22:46)
[2020-07-13] MEDS ORDERED: Acetaminophen 325 MG Tab PO PRN (22:46)
[2020-07-13] MEDS ORDERED: Ondansetron 4 MG/2 ML SDV IV PRN (22:46)
--- NOTE | 2020-07-13 22:55 | PCM.SN.2 ---
- Free Text/Narrative Note: START OF DOCTOR EMAMIS HISTORY AND PHYSICAL / CONSULTATION NOTE Chief Complaint: Shortness of breath History of Present Illness: The patient is a 69-year-old male who presents with chief plan dyspnea. He states this started approximately 1 PM on this day of July 13, 2020 after undergoing elective cardioversion. He states that the dyspnea was of gradual onset. He admits to onset of cough which is nonproductive as well as wheeze. He admits to lightheadedness and dizziness. He denies fever, rigors, nausea, vomiting, abdominal pain, diarrhea, myalgia, chest pain, diaphoresis, palpitations, sensation irregular heartbeat, sensation rapid heartbeat, or peripheral edema. He presents for further evaluation Surgical History: Appendectomy, IVC filter placement, Port-A-Cath placement, left third finger amputation, cardiac ablation, left inguinal herniorrhaphy, left knee arthroscopic surgery, surgery for artificial urinary sphincter, prostatectomy Family History: Cancer, stroke, diabetes, coronary artery disease, hypertension, hyperlipidemia Social History: Tobacco: Never however his spouse has been a longtime smoker Alcohol: Rare Caffeine: Denies Drugs: Never Allergies: No known drug allergies Code Status: DNR, DNI Pertinent Laboratory Results / Pertinent Radiology Results / Pertinent Diagnostic Results / Pertinent Vital Signs: Blood pressure 155/94, pulse 79, respirations 20, temperature 98.7 degrees, 95% on 4 L, BNP 1194 Physical Examination: General: -Alert -No acute distress -No dyspnea -No tachypnea -Obese Head: -Atraumatic -Normocephalic Eyes: -Pupils equally round and reactive to light and accommodation -Extraocular muscles intact Neurological: -Cranial nerves II-XII intact Neck: -No jugular venous distention -No thyromegaly -No cervical lymphadenopathy Heart: -Regular rate -Regular rhythm -No murmurs -No gallops -No rubs Lungs: -No wheeze -No rhonchi -No rales -Distant breath sounds bilaterally Abdomen: -Normal bowel sounds in all four quadrants -No rebound -No guarding -No tenderness Extremities: -2/4 pulse in all four extremities -No clubbing -No cyanosis -No edema -No calf tenderness present bilaterally -Negative Homans sign bilaterally Musculoskeletal: -5/5 bilateral upper extremity strength -5/5 bilateral lower extremity strength -Sensorium of bilateral upper extremities are equal and intact -Sensorium of bilateral lower extremities are equal and intact Additional Details / Additional Findings / Exceptions / Miscellaneous: Assessment / Plan: Pneumonia. Vancomycin 1 g IV every 12 hours to be dosed by pharmacy plus Zosyn 3.375 g IV every 6 hours plus DuoNeb every 4 hours + Medrol 60 mg IV every 8 hours. Because this may represent postobstructive pneumonia, will check CT chest with IV contrast to rule out PE and to ensure malignancy may not be contributing to his dyspnea Chronic inflammatory demyelinating polyneuropathy History of vitamin D deficiency. Vitamin D 2000 IU p.o. twice daily History of TIA. Lipitor 40 mg p.o. nightly Asthma/reactive airway disease. Solu-Medrol 60 mg IV every 8 hours plus DuoNeb every 4 hours History of DVT/PE, status post IVC filter placement. Coumadin p.o. per home dose/frequency. Will monitor PT/INR periodically Overactive bladder. Oxybutynin 10 mg p.o. daily Atrial fibrillation/history of SVT, status post cardiac ablation. Amiodarone 200 mg p.o. daily plus metoprolol 100 mg p.o. twice daily plus verapamil 120 mg p.o. nightly plus Coumadin p.o. per home dose/frequency. Will monitor PT/INR periodically. Telemetry monitoring Obstructive sleep apnea. CPAP/BiPAP: Okay to use home device and/or pressure when sleeping if the patient uses CPAP/BiPAP at home Neuropathy. Gabapentin 300 mg p.o. twice daily Moderate mitral regurgitation Coronary artery disease, status post [place]. Lipitor 40 mg p.o. nightly plus metoprolol 100 mg p.o. twice daily Diabetes. Will check fingerstick glucose before every meal and at bedtime and provide insulin sliding scale plus Metformin 1000 mg p.o. twice daily GERD. Prilosec 20 mg p.o. daily Hyperlipidemia. Lipitor 40 mg p.o. nightly Hypertension. Lasix 20 mg p.o. daily plus metoprolol 100 mg p.o. twice daily plus [place]mill 120 mg p.o. nightly Obesity. Patient becomes regarding lifestyle modification History of prostate cancer, status post radiation therapy on 2 separate occasions, status post chemotherapy, status post prostatectomy. The patient indicates he is in remission. Outpatient follow-up with hematology/oncology upon discharge as directed Erectile dysfunction Diverticulosis Carpal tunnel syndrome History of proximal ascending aortic enlargement. Outpatient monitoring with his primary care physician or provider History of mediastinal lymphadenopathy. Check CT chest with IV contrast for reassessment History of left renal cyst. Outpatient monitoring with his primary care physician or provider DVT prophylaxis. Coumadin p.o. per home dose/frequency. Will monitor PT/INR periodically Disposition: Anticipate discharge within 48 to 72 hours END OF DOCTOR EMAMIS HISTORY AND PHYSICAL / CONSULTATION NOTE
[2020-07-13] MEDS ORDERED: methylPREDNISolone Sodium Succinate 40 MG/1 ML SDV IVPUSH SCH (23:00)
[2020-07-13] MEDS ORDERED: Vancomycin 1.75 GM in Sodium Chloride 0.9% 500 ML IV SCH (23:00)
--- NOTE | 2020-07-13 23:42 | CRLCT ---
INDICATION: Dyspnea, history of mediastinal adenopathy. TECHNIQUE: CT chest was acquired with IV contrast. COMPARISON: Chest radiograph from earlier today, chest CT March 21, 2020 FINDINGS: Cardiovascular structures: Heart size is normal. Thoracic aorta and main pulmonary artery are normal in caliber. Right-sided Port-A-Cath tip terminates at the level of the cavoatrial junction. Mediastinum and mary: No mass or adenopathy. Lungs: Bilateral lower lobe airspace opacities, right greater than left. Pleura and pericardium: No effusions. Chest wall and axilla: No mass or adenopathy. Upper abdomen: Simple cyst in the superior pole of the left kidney. There is an IVC filter which is in the IVC just above the level of the renal veins. Bones: No significant findings. IMPRESSION: Bilateral lower lobe airspace opacities concerning for pneumonia. This is not a typical appearance for COVID-19. No mediastinal or thoracic adenopathy. Previously identified subpleural right lower lobe pulmonary nodule is not seen and may be obscured by the airspace disease. Recommend follow-up chest CT in 1 month to reassess presence of pulmonary nodule. IVC filter is unchanged in position. It is located above the level of the renal veins. Right-sided Port-A-Cath appears appropriate in position. Please note that all CT scans at this facility use dose modulation, iterative reconstruction, and/or weight-based dosing when appropriate to reduce radiation dose to as low as reasonably achievable. Dictated by Davida Jimenez MD @ 07/13/2020 11:41:[address] Davida Jimenez @ Jul 13 2020 11:41PM
[2020-07-13] MEDS: Albuterol/Ipratropium 3.0-0.5 MG/3 ML Neb Soln NEB SCH (23:46)
[2020-07-14] MEDS: Albuterol/Ipratropium 3.0-0.5 MG/3 ML Neb Soln NEB SCH ×6 (03:42→23:05)
[2020-07-14] MEDS ORDERED: Piperacillin/Tazobactam 3.375 GM in Sodium Chloride 0.9% 50 ML IV SCH (04:00)
[2020-07-14] MEDS ORDERED: Pantoprazole 40 MG Tab.CR PO SCH (07:30)
[2020-07-14] MEDS: methylPREDNISolone Sodium Succinate 125 MG/2 ML SDV IVPUSH SCH ×3 (07:54→23:08)
[2020-07-14] MEDS ORDERED: metFORMIN 500 MG Tab PO SCH (08:00)
[2020-07-14] MEDS: Oxybutynin 5 MG Tab PO SCH ×2 (08:33→21:21)
[2020-07-14] MEDS: Gabapentin 300 MG Cap PO SCH ×2 (08:34→21:21)
[2020-07-14] MEDS: Metoprolol Tartrate 50 MG Tab PO SCH ×2 (08:34→21:20)
[2020-07-14] MEDS: Cholecalciferol (Vitamin D3) 25 MCG Tab PO SCH ×2 (08:34→21:21)
[2020-07-14] MEDS: Furosemide 20 MG Tab PO SCH (08:35)
[2020-07-14] MEDS: Pantoprazole 40 MG Tab.CR PO SCH (08:35)
[2020-07-14] MEDS: Amiodarone 200 MG Tab PO SCH (08:35)
[2020-07-14] MEDS: Insulin Lispro 100 Unit/ML 3 ML KwikPen SUBCUT SCH ×4 (08:38→21:18)
[2020-07-14] MEDS ORDERED: Non-Formulary Medication 1 Each (Omeprazole [Omeprazole] 20 MG Cap.Cr) PO SCH (09:00)
[2020-07-14] MEDS ORDERED: Warfarin 2.5 MG Tab PO SCH ×2 (09:00)
[2020-07-14] MEDS ORDERED: OXYBUTYNIN 10 MG PO SCH (09:00)
[2020-07-14] MEDS: Piperacillin/Tazobactam/Dext 3.375 GM in Premix Bag 1 BAG IV SCH ×3 (09:18→23:06)
--- NOTE | 2020-07-14 09:54 | PCM.SN.2 ---
- Free Text/Narrative Note: START OF DOCTOR SAI PROGRESS NOTE Subjective: The patient in case of his respiratory status has greatly improved compared to my encounter with him on June 16, 2020. He currently rates his respiratory status as an 8 out of 10 at times his baseline. Overnight he denies fever, rigors, nausea, vomiting, cough, wheeze, abdominal pain, chest pain. I explained to the patient his current medical condition and plan of care and I have answered all of his questions Objective: General: -Alert -No acute distress -No dyspnea -No tachypnea -Obese Heart: -Regular rate -Regular rhythm -No murmurs -No gallops -No rubs Lungs: -No wheeze -No rhonchi -No rales -Distant breath sounds bilaterally Abdomen: -Normal bowel sounds in all four quadrants -No rebound -No guarding -No tenderness Extremities: -2/4 pulse in all four extremities -No clubbing -No cyanosis -No edema Additional Details / Additional Findings / Exceptions / Miscellaneous: Pertinent Laboratory Results / Pertinent Radiology Results / Pertinent Diagnostic Results / Pertinent Vital Signs: Patient saturating 92% on 2 L, INR 1.8 Assessment / Plan: Pneumonia. Vancomycin 1 g IV every 12 hours to be dosed by pharmacy plus Zosyn 3.375 g IV every 6 hours plus DuoNeb every 4 hours + Medrol 60 mg IV every 8 hours. Because this may represent postobstructive pneumonia, will check CT chest with IV contrast to rule out PE and to ensure malignancy may not be contributing to his dyspnea History of right lower lobe pulmonary nodule. Patient will need repeat CT chest with IV contrast 1 month post discharge Chronic inflammatory demyelinating polyneuropathy History of vitamin D deficiency. Vitamin D 2000 IU p.o. twice daily History of TIA. Lipitor 40 mg p.o. nightly Asthma/reactive airway disease. Solu-Medrol 60 mg IV every 8 hours plus DuoNeb every 4 hours History of DVT/PE, status post IVC filter placement. Coumadin p.o. per home dose/frequency. Will monitor PT/INR periodically Overactive bladder. Oxybutynin 10 mg p.o. daily Atrial fibrillation/history of SVT, status post cardiac ablation. Amiodarone 200 mg p.o. daily plus metoprolol 100 mg p.o. twice daily plus verapamil 120 mg p.o. nightly plus Coumadin p.o. per home dose/frequency. Will monitor PT/INR periodically. Telemetry monitoring Obstructive sleep apnea. CPAP/BiPAP: Okay to use home device and/or pressure when sleeping if the patient uses CPAP/BiPAP at home Neuropathy. Gabapentin 300 mg p.o. twice daily Moderate mitral regurgitation Coronary artery disease, status post [place]. Lipitor 40 mg p.o. nightly plus metoprolol 100 mg p.o. twice daily Diabetes. Will check fingerstick glucose before every meal and at bedtime and provide insulin sliding scale plus Metformin 1000 mg p.o. twice daily GERD. Prilosec 20 mg p.o. daily Hyperlipidemia. Lipitor 40 mg p.o. nightly Hypertension. Lasix 20 mg p.o. daily plus metoprolol 100 mg p.o. twice daily plus Brymill 120 mg p.o. nightly Obesity. Patient becomes regarding lifestyle modification History of prostate cancer, status post radiation therapy on 2 separate occasions, status post chemotherapy, status post prostatectomy. The patient indicates he is in remission. Outpatient follow-up with hematology/oncology upon discharge as directed Erectile dysfunction Diverticulosis Carpal tunnel syndrome History of proximal ascending aortic enlargement. Outpatient monitoring with his primary care physician or provider History of mediastinal lymphadenopathy. Check CT chest with IV contrast for reassessment History of left renal cyst. Outpatient monitoring with his primary care physician or provider DVT prophylaxis. Coumadin p.o. per home dose/frequency. Will monitor PT/INR periodically Disposition: The patient may be a candidate for discharge on this day of July 14, 2020 if we were able to wean the patient off of supplemental oxygen END OF DOCTOR GIBBS PROGRESS NOTE
[2020-07-14] MEDS ORDERED: Warfarin 2.5 MG Tab PO ONE (10:00)
[2020-07-14] MEDS: Warfarin 5 MG Tab PO ONE ×4 (11:46→16:08)
[2020-07-14] MEDS ORDERED: Warfarin 5 MG Tab PO ONE (11:46)
[2020-07-14] MEDS: Vancomycin 1.75 GM in Sodium Chloride 0.9% 500 ML IV SCH ×2 (11:53→23:49)
[2020-07-14] MEDS: metFORMIN 500 MG Tab PO SCH (17:23)
[2020-07-14] MEDS ORDERED: Verapamil 120 MG Tab.ER PO SCH (21:00)
[2020-07-14] MEDS ORDERED: atorvaSTATin 20 MG Tab PO SCH (21:00)
[2020-07-14] MEDS ORDERED: Non-Formulary Medication 1 Each (Atorvastatin [Lipitor] 40 MG Tab) PO SCH (21:00)
[2020-07-14] MEDS ORDERED: Melatonin 3 MG Tab PO SCH (21:00)
[2020-07-15] MEDS: Piperacillin/Tazobactam/Dext 3.375 GM in Premix Bag 1 BAG IV SCH ×2 (03:05→10:24)
[2020-07-15] MEDS: Albuterol/Ipratropium 3.0-0.5 MG/3 ML Neb Soln NEB SCH ×3 (03:06→10:50)
[2020-07-15] MEDS: Pantoprazole 40 MG Tab.CR PO SCH (07:37)
[2020-07-15] MEDS: methylPREDNISolone Sodium Succinate 125 MG/2 ML SDV IVPUSH SCH (07:37)
[2020-07-15 07:46] VITALS: BP 135/67
--- NOTE | 2020-07-15 07:47 | PCM.SN.2 ---
- Free Text/Narrative Note: START OF DOCTOR EMAMIS DISCHARGE SUMMARY Date of Admission: July 13, 2020 Date of Discharge: 7:42 AM on July 15, 2020 Primary Diagnosis: Pneumonia Secondary Diagnosis: History of right lower lobe pulmonary nodule Chronic inflammatory demyelinating polyneuropathy History of vitamin D deficiency History of TIA Asthma/reactive airway disease History of DVT/PE, status post IVC filter placement Overactive bladder Atrial fibrillation/history of SVT, status post cardiac ablation Obstructive sleep apnea Neuropathy Moderate mitral regurgitation Coronary artery disease, status post MD Diabetes GERD Hyperlipidemia Hypertension Obesity History of prostate cancer, status post radiation therapy on 2 separate occasions, status post chemotherapy, status post prostatectomy Erectile dysfunction Diverticulosis Carpal tunnel syndrome History of proximal ascending aortic enlargement History of mediastinal lymphadenopathy History of left renal cyst Consultations: None Disposition: The patient is advised to follow-up with hematology/oncology as directed for his history of prostate cancer The patient was advised to follow-up with his primary care physician or provider 7 to 10 days post discharge for posthospitalization evaluation. The patient will need to schedule CT chest with IV contrast with his primary care physician or provider for his history of right lower lobe pulmonary nodule, history of proximal ascending aortic enlargement, and history of mediastinal lymphadenopathy. Patient will also need to schedule left renal ultrasound for his history of left renal cyst The patient will need a check of BMP 5 days post discharge for acute renal insufficiency Discharge Medications: Metformin 500 mg p.o. twice daily Melatonin 5 mg p.o. nightly Hydralazine 25 mg p.o. every 8 hours Gabapentin 300 mg p.o. daily Lasix 20 mg p.o. daily: This is to be resumed on July 18, 2020 Vitamin D 2000 IU p.o. twice daily Lipitor 40 mg p.o. nightly Amiodarone 200 mg p.o. daily Coumadin p.o.: Per home dose/frequency Multivitamin 1 tab p.o. daily Calcium carbonate 600 mg p.o. nightly Proventil HFA: 90 mcg/spray: 1 to 2 puffs every 4 hours as needed shortness of breath/wheeze Doxycycline 100 mg p.o. twice daily. Quantity 12. 0 refills Verapamil 120 mg p.o. nightly Oxybutynin ER 10 mg p.o. daily Prilosec 20 mg p.o. daily Metoprolol 100 mg p.o. twice daily Prednisone 10 mg p.o.: 4 tabs daily x3 days then 3 tabs daily x3 days then 2 tabs daily x3 days then 1 tab daily x3 days. Quantity sufficient. 0 refills As mentioned above, patient should resume Lasix 20 mg p.o. daily on July 18, 2020 END OF DOCTOR EMAMIS DISCHARGE SUMMARY
[2020-07-15] MEDS ORDERED: hydrALAZINE 25 MG Tab PO SCH (08:00)
[2020-07-15] MEDS: Metoprolol Tartrate 50 MG Tab PO SCH (08:16)
[2020-07-15] MEDS: metFORMIN 500 MG Tab PO SCH (08:16)
[2020-07-15] MEDS: Cholecalciferol (Vitamin D3) 25 MCG Tab PO SCH (08:16)
[2020-07-15] MEDS: Amiodarone 200 MG Tab PO SCH (08:17)
[2020-07-15] MEDS: Gabapentin 300 MG Cap PO SCH (08:17)
[2020-07-15] MEDS: Furosemide 20 MG Tab PO SCH (08:17)
[2020-07-15] MEDS: Oxybutynin 5 MG Tab PO SCH (08:17)
[2020-07-15 08:20] VITALS: PULSE 77
[2020-07-15] MEDS: Insulin Lispro 100 Unit/ML 3 ML KwikPen SUBCUT SCH ×2 (08:21→12:37)
[2020-07-15] MEDS: Vancomycin 1.75 GM in Sodium Chloride 0.9% 500 ML IV SCH (12:38)
== END 2020-07-15 12:20 | disposition home or self-care (01) | DRG 194 ==
LOC: JP.ED 19:06 → JP.MS 22:46
PROVIDERS: ADMIT Internal Medicine; ATTEND Internal Medicine
DX: J18.9 Pneumonia, unspecified organism (principal); G61.81 Chronic inflammatory demyelinating polyneuritis; D84.9 Immunodeficiency, unspecified; H91.93 Unspecified hearing loss, bilateral; Z95.828 Presence of other vascular implants and grafts; R91.1 Solitary pulmonary nodule; I10 Essential (primary) hypertension; E55.9 Vitamin D deficiency, unspecified; J45.909 Unspecified asthma, uncomplicated; Z66 Do not resuscitate; N32.81 Overactive bladder; I48.91 Unspecified atrial fibrillation; G47.33 Obstructive sleep apnea (adult) (pediatric); I34.0 Nonrheumatic mitral (valve) insufficiency; Z96.89 Presence of other specified functional implants; N28.1 Cyst of kidney, acquired; I25.10 Atherosclerotic heart disease of native coronary artery without angina pectoris; E78.5 Hyperlipidemia, unspecified; K21.9 Gastro-esophageal reflux disease without esophagitis; E66.9 Obesity, unspecified; E11.40 Type 2 diabetes mellitus with diabetic neuropathy, unspecified; G62.89 Other specified polyneuropathies; N52.9 Male erectile dysfunction, unspecified; K57.90 Diverticulosis of intestine, part unspecified, without perforation or abscess without bleeding; Z90.79 Acquired absence of other genital organ(s); R59.1 Generalized enlarged lymph nodes; H91.90 Unspecified hearing loss, unspecified ear; H54.7 Unspecified visual loss; E78.00 Pure hypercholesterolemia, unspecified; G47.30 Sleep apnea, unspecified; I12.9 Hypertensive chronic kidney disease with stage 1 through stage 4 chronic kidney disease, or unspecified chronic kidney disease; N18.9 Chronic kidney disease, unspecified; E11.22 Type 2 diabetes mellitus with diabetic chronic kidney disease; Z86.73 Personal history of transient ischemic attack (TIA), and cerebral infarction without residual deficits; I25.2 Old myocardial infarction; Z86.718 Personal history of other venous thrombosis and embolism; Z90.49 Acquired absence of other specified parts of digestive tract; Z79.01 Long term (current) use of anticoagulants; Z85.46 Personal history of malignant neoplasm of prostate; Z89.022 Acquired absence of left finger(s); Z98.890 Other specified postprocedural states; Z79.84 Long term (current) use of oral hypoglycemic drugs; Z86.711 Personal history of pulmonary embolism; Z87.01 Personal history of pneumonia (recurrent); Z79.899 Other long term (current) drug therapy; Z92.3 Personal history of irradiation; Z92.21 Personal history of antineoplastic chemotherapy; R59.0 Localized enlarged lymph nodes
CPT/HCPCS: 36415; 71046; 80053; 83605; 83880; 84484; 85025; 85379; 86140; 87040 ×2; 96365; 99285; J1642; J2543; 36600; 71260; 82565; 82803; 82947; 85610; 94640; 94762; 99222; 99232; 99238; A9270-GY; J1815; J2920; J2930; J3370; J7040; J7620-GY; Q9967

== ENCOUNTER 2020-11-29 16:52 | Emergency (ER) | payer MEDICARE, BC ==
[2020-11-29] MEDS ORDERED: Sodium Chloride 0.9% 10 ML Syringe FLUSH PRN (17:28)
[2020-11-29] MEDS ORDERED: REMDESIVIR 200 MG in Sodium Chloride 0.9% 250 ML IV ONE (18:19)
[2020-11-29] MEDS ORDERED: Acetaminophen 325 MG Tab PO PRN (18:19)
[2020-11-29] MEDS ORDERED: Dexamethasone 4 MG/ML SDV IVPUSH SCH (18:30)
--- NOTE | 2020-11-29 18:38 | EDM.PDOC ---
ED HPI GENERAL MEDICAL PROBLEM - General Chief Complaint: Respiratory Problem Stated Complaint: COVID POSITIVE AND STROKE? Time Seen by Provider: 11/29/20 17:26 Source of Information: Reports: Patient History Limitations: Reports: No Limitations - History of Present Illness INITIAL COMMENTS - FREE TEXT/NARRATIVE: Ankush is a 70-year-old male presenting to the ED for increasing hypoxia and shortness of breath. He was diagnosed on Thursday (4 days ago with COVID-19. He has been vaccinated with both doses of vaccine but is unsure whether was Meddlea or Qualys. He is also unsure of what month he was vaccinated, but he does believe it was in June or July. The vaccinations were done through the [facility]. The patient initially had symptoms with fever, chills, headache and body aches, cough, sore throat, and some shortness of breath on Thursday. He was tested in the clinic and found to be positive for COVID-19. Over the last 24 hours he has had progressive dyspnea to the point now where he feels like he cannot catch his breath. On arrival to the ED he has an SPO2 of 89% on room air. Goes down fairly quickly when he starts to talk or has any significant movement. He is absolutely holding still and not talking he gets as high as 91% on room air. Patient was started on 2 L nasal cannula and has been breathing much easier. The patient does have a history for diabetes and obesity making him at a higher risk for complications related to COVID-19. - Related Data Allergies Allergy/AdvReac Type Severity Reaction Status Date / Time No Known Allergies Allergy Verified 11/29/20 16:57 Home Meds: Home Meds atorvaSTATin [Lipitor] 40 mg PO BEDTIME 11/18/12 [History] Cholecalciferol (Vitamin D3) [Vitamin D3] 1,000 units PO BID 02/28/14 [History] Oxybutynin [Oxybutynin ER] 10 mg PO QAM 12/01/14 [History] Multivitamin with Minerals [Multiple Vitamin] 1 tab PO BEDTIME 02/05/15 [History] Omeprazole 20 mg PO QAM 02/05/15 [History] Calcium Carbonate [Calcium] 600 mg PO BEDTIME 11/29/15 [History] Warfarin [Coumadin] 5 - 7.5 mg PO DAILY 02/12/16 [History] Furosemide 20 mg PO QAM 05/12/16 [History] Albuterol [Ventolin HFA] 1 - 2 puff INH Q4H PRN 12/31/17 [History] Gabapentin [Neurontin] 300 mg PO BID 03/21/20 [History] Verapamil [Calan SR] 120 mg PO BEDTIME 03/21/20 [History] Amiodarone [Cordarone] 200 mg PO QAM 05/29/20 [History] Melatonin 5 mg PO BEDTIME 06/12/20 [History] Metoprolol Tartrate [Lopressor] 100 mg PO BID 07/13/20 [History] L.acidoph,Paracasei, B.lactis [Probiotic] 1 cap PO QAM 09/11/20 [History] Magnesium Chloride [Mag Delay] 3 tab PO BID 09/11/20 [History] hydrALAZINE [Apresoline] 25 mg PO Q8HR 09/11/20 [History] metFORMIN [Glucophage] 2 tab PO BIDMEALS 09/26/20 [History] Past Medical History HEENT History: Reports: Hard of Hearing, Impaired Vision Other HEENT History: wears glasses, has bilat hearing aides Cardiovascular History: Reports: Afib, Arrhythmia, Blood Clots/VTE/DVT, CAD, High Cholesterol, Hypertension, GA, SOB on Exertion Respiratory History: Reports: Asthma, PE, Pneumonia, Recurrent, Sleep Apnea Other Respiratory History: c-pap Gastrointestinal History: Reports: GERD, Hemorrhoids Genitourinary History: Reports: Chronic Renal Insuffiency, Prostate Disorder Other Genitourinary History: prostate CA, artificial urinary sphincter; needs to be deactived before catheterizing. Spincter at base of bladder Musculoskeletal History: Reports: Fracture Other Musculoskeletal History: left long finger. left shoulder pain. left knee pain. Fell- L knee injury pt not sure on date week of September 17 Neurological History: Reports: TIA, Other (See Below) Other Neuro History: chronic inflammatory demylinating neuropathy Psychiatric History: Reports: None Endocrine/Metabolic History: Reports: Diabetes, Type II, Obesity/BMI 30+, Vitamin D Deficiency Hematologic History: Reports: Anticoagulation Therapy, Other (See Below) Other Hematologic History: chronic inflammatory neuropathy. CHRONIC INFLAMMATORY DEMYELINATING POLYNEUROPATHY Immunologic History: Reports: Immunosuppression Oncologic (Cancer) History: Reports: Metastatic, Prostate, Other (See Below) Other Oncologic History: chemo, radiation PROSTATES REMOVED Dermatologic History: Reports: Other (See Below) Other Dermatologic History: Left Lower leg bruise - Infectious Disease History Infectious Disease History: Reports: Chicken Pox, Mumps, Shingles - Past Surgical History Head Surgeries/Procedures: Reports: None HEENT Surgical History: Reports: None Cardiovascular Surgical History: Reports: Cardiac Ablation, Other (See Below) Other Cardiovascular Surgeries/Procedures: ablation. ANGIOGRAM Respiratory Surgical History: Reports: None GI Surgical History: Reports: Appendectomy, Colonoscopy, Hernia Repair/Other Male Surgical History: Reports: Prostatectomy, Other (See Below) Other Male Surgeries/Procedures: artificial sphincter Endocrine Surgical History: Reports: None Neurological Surgical History: Reports: None Musculoskeletal Surgical History: Reports: Arthroscopic Knee Oncologic Surgical History: Reports: None Dermatological Surgical History: Reports: None Social & Family History - Family History Family Medical History: No Pertinent Family History Cardiac: Reports: Hypertension - Tobacco Use Tobacco Use Status *Q: Never Tobacco User - Caffeine Use Caffeine Use: Reports: None - Recreational Drug Use Recreational Drug Use: No ED ROS GENERAL - Review of Systems Review Of Systems: See Below Constitutional: Reports: Fever, Chills HEENT: Reports: No Symptoms Respiratory: Reports: Shortness of Breath, Cough. Denies: Sputum Cardiovascular: Reports: No Symptoms GI/Abdominal: Reports: No Symptoms : Reports: No Symptoms Musculoskeletal: Reports: Muscle Pain Skin: Reports: No Symptoms Neurological: Reports: Dizziness, Headache Psychiatric: Reports: No Symptoms Hematologic/Lymphatic: Reports: No Symptoms Immunologic: Reports: No Symptoms ED EXAM, GENERAL - Physical Exam Exam: See Below Exam Limited By: No Limitations General Appearance: Alert, Anxious, Mild Distress, Obese Eye Exam: Bilateral Eye: EOMI, PERRL Throat/Mouth: Normal Inspection, Normal Oropharynx, Normal Voice, No Airway Compromise Head: Atraumatic, Normocephalic Neck: Normal Inspection, Supple, Non-Tender, Full Range of Motion. No: Lymphadenopathy (R), Lymphadenopathy (L) Respiratory/Chest: No Respiratory Distress, No Accessory Muscle Use, Chest Non- Tender, Decreased Breath Sounds (Bibasilar mildly diminished breath sounds), Rhonchi (Scant left-sided rhonchi) Cardiovascular: Normal Peripheral Pulses, Regular Rate, Rhythm, No Murmur Peripheral Pulses: 2+: Radial (L), Radial (R) GI/Abdominal: Normal Bowel Sounds, Soft, Non-Tender Back Exam: Normal Inspection, Full Range of Motion Extremities: Normal Inspection, Normal Range of Motion, Normal Capillary Refill Neurological: Alert, Oriented, Normal Cognition, No Motor/Sensory Deficits Psychiatric: Normal Affect, Anxious Skin Exam: Warm, Dry, Intact, Normal Color Lymphatic: No Adenopathy Course - Vital Signs Last Recorded V/S: Last Vital Signs Temp 38.5 C H 11/29/20 16:53 Pulse 71 11/29/20 16:53 Resp 24 H 11/29/20 16:53 BP 142/66 H 11/29/20 16:53 Pulse Ox 91 L 11/29/20 16:53 - Orders/Labs/Meds Orders: Active Orders 24 hr Category Date Time Status Nurse Communication: Isolation [RC] ASDIRECTED Care 11/29/20 18:21 Ordered Chest 1V Frontal [CR] Stat Exams 11/29/20 17:28 Taken BLOOD GAS ARTERIAL [BG] Stat Lab 11/29/20 18:19 Ordered COMPREHENSIVE METABOLIC PN,CMP [CHEM] Stat Lab 11/29/20 18:05 Received D-DIMER QUANTITATIVE [COAG] Stat Lab 11/29/20 18:05 Received FERRITIN [CHEM] Stat Lab 11/29/20 18:05 Received LACTATE DEHYDROGENASE,LDH [CHEM] Stat Lab 11/29/20 18:05 Received LACTIC ACID [CHEM] Stat Lab 11/29/20 18:05 Received PROCALCITONIN [CHEM] Stat Lab 11/29/20 18:05 Received Acetaminophen [TylenoL] Med 11/29/20 18:19 Ordered 650 mg PO Q4H PRN Sodium Chloride 0.9% [Saline Flush] Med 11/29/20 17:28 Active 10 ml FLUSH ASDIRECTED PRN dexAMETHasone [Decadron] Med 11/29/20 18:30 Ordered 6 mg IVPUSH DAILY Isolation [COMM] Stat Oth 11/29/20 18:19 Ordered Saline Lock Insert [OM.PC] Routine Oth 11/29/20 17:28 Ordered Medication Orders Acetaminophen (Acetaminophen 325 Mg Tab) 650 mg PO Q4H PRN PRN Reason: Fever Greater Than 101 Dexamethasone (Dexamethasone 4 Mg/Ml Sdv) 6 mg IVPUSH DAILY EDUARDO Stop: 12/08/20 09:01 Sodium Chloride (Sodium Chloride 0.9% 10 Ml Syringe) 10 ml FLUSH ASDIRECTED PRN PRN Reason: Keep Vein Open Last Admin: 11/29/20 18:06 Dose: 10 ml Documented by: ALE Labs: Laboratory Tests 11/29/20 Range/Units 18:05 WBC 7.6 (4.5-11.0) K/uL RBC 4.17 L (4.30-5.90) M/uL Hgb 12.2 (12.0-15.0) g/dL Hct 37.2 L (40.0-54.0) % MCV 89 (80-98) fL MCH 29 (27-31) pg MCHC 33 (32-36) % Plt Count 171 (150-400) K/uL Neut % (Auto) 73.0 H (36-66) % Lymph % (Auto) 14.8 L (24-44) % Dane % (Auto) 12.1 H (2-6) % Eos % (Auto) 0.0 L (2-4) % Baso % (Auto) 0.1 (0-1) % Meds: Medications Generic Name Dose Route Start Last Admin Trade Name Freq PRN Reason Stop Dose Admin Acetaminophen 650 mg 11/29/20 18:19 Acetaminophen 325 Mg Tab PO Q4H PRN Fever Greater Than 101 Dexamethasone 6 mg 11/29/20 18:30 Dexamethasone 4 Mg/Ml Sdv IVPUSH 12/08/20 09:01 DAILY EDUARDO Sodium Chloride 10 ml 11/29/20 17:28 11/29/20 18:06 Sodium Chloride 0.9% 10 Ml Syringe FLUSH 10 ml ASDIRECTED PRN Administration Keep Vein Open Discontinued Medications Generic Name Dose Route Start Last Admin Trade Name Freq PRN Reason Stop Dose Admin Remdesivir 200 mg/ Sodium 250 mls @ 250 mls/hr 11/29/20 18:19 Chloride IV 11/29/20 18:20 ONETIME ONE - Radiology Interpretation Free Text/Narrative:: I reviewed the one-view portable chest x-ray on the patient showing some fluffy infiltrates in the lower segment of the left upper lung. - Re-Assessments/Exams Free Text/Narrative Re-Assessment/Exam: 11/29/20 18:40 I reviewed the patient's labs showing a CBC with a leukocyte count of 7.6, hemoglobin of 12.2, hematocrit of 37.2, and platelet count of 171,000. Comprehensive metabolic panel shows a sodium 131, potassium 4.0, chloride of 97, bicarbonate of 27, BUN of 27 with a creatinine 1.6 and a glucose of 159. The remainder of the comprehensive metabolic panel is unremarkable. The D-dimer is normal at 258. The procalcitonin is 0.17. An arterial blood gas was done on 2 L nasal cannula showing a pH of 7.438, PCO2 of 38.2, PO2 of 78.5, bicarbonate of 25.4 and an oxygen saturation of 95.7%. Chest x-ray was obtained showing infiltrates in the lower segment of the left upper lung. The patient has been requiring at least 2 L via nasal cannula of oxygen to maintain an SPO2 above 90%. We initiated therapy with dexamethasone 6 mg IV and remdesivir 200 mg IV based on the patient's oxygen requirements and his comorbidities with obesity and diabetes. The patient does have a high susceptibility to recurrent pneumonias. There are no beds available at our facility so I reached out to [facility] and discussed the case with Dr. Diamond who graciously accepts the patient in transfer for admission to their medical service. We will have [facility] provide transport to their facility. Departure - Departure Time of Disposition: 18:42 Disposition: DC/Tfer to [facility] 02 Clinical Impression: COVID-19, Hypoxia - Discharge Information Referrals: PCP,None [Primary Care Provider] - Sepsis Event Note (ED) - Evaluation Sepsis Screening Result: Possible Sepsis Risk - Focused Exam Vital Signs: Vital Signs Temp Pulse Resp BP Pulse Ox 11/29/20 16:53 38.5 C H 71 24 H 142/66 H 91 L - Problem List & Annotations (1) Diabetes mellitus type 2 SNOMED Code(s): 92835694 Code(s): E11.9 - TYPE 2 DIABETES MELLITUS WITHOUT COMPLICATIONS Status: Chronic Priority: Low Current Visit: No (2) COVID-19 SNOMED Code(s): 866667768 Code(s): U07.1 - COVID-19 Status: Acute Priority: High Current Visit: Yes (3) Hypoxia SNOMED Code(s): 027451852 Code(s): R09.02 - HYPOXEMIA Status: Acute Priority: High Current Visit: Yes - Problem List Review Problem List Initiated/Reviewed/Updated: Yes - My Orders Last 24 Hours: My Active Orders 11/29/20 17:28 Chest 1V Frontal [CR] Stat Sodium Chloride 0.9% [Saline Flush] 10 ml FLUSH ASDIRECTED PRN Saline Lock Insert [OM.PC] Routine 11/29/20 18:05 COMPREHENSIVE METABOLIC PN,CMP [CHEM] Stat D-DIMER QUANTITATIVE [COAG] Stat FERRITIN [CHEM] Stat LACTATE DEHYDROGENASE,LDH [CHEM] Stat LACTIC ACID [CHEM] Stat PROCALCITONIN [CHEM] Stat 11/29/20 18:19 BLOOD GAS ARTERIAL [BG] Stat Acetaminophen [TylenoL] 650 mg PO Q4H PRN Isolation [COMM] Stat 11/29/20 18:21 Nurse Communication: Isolation [RC] ASDIRECTED 11/29/20 18:30 dexAMETHasone [Decadron] 6 mg IVPUSH DAILY - Assessment/Plan Last 24 Hours: My Active Orders 11/29/20 17:28 Chest 1V Frontal [CR] Stat Sodium Chloride 0.9% [Saline Flush] 10 ml FLUSH ASDIRECTED PRN Saline Lock Insert [OM.PC] Routine 11/29/20 18:05 COMPREHENSIVE METABOLIC PN,CMP [CHEM] Stat D-DIMER QUANTITATIVE [COAG] Stat FERRITIN [CHEM] Stat LACTATE DEHYDROGENASE,LDH [CHEM] Stat LACTIC ACID [CHEM] Stat PROCALCITONIN [CHEM] Stat 11/29/20 18:19 BLOOD GAS ARTERIAL [BG] Stat Acetaminophen [TylenoL] 650 mg PO Q4H PRN Isolation [COMM] Stat 11/29/20 18:21 Nurse Communication: Isolation [RC] ASDIRECTED 11/29/20 18:30 dexAMETHasone [Decadron] 6 mg IVPUSH DAILY
[2020-11-29] MEDS ORDERED: REMDESIVIR 100 MG ONE (18:46)
[2020-11-29 19:14] VITALS: BP 123/62; PULSE 65
--- NOTE | 2020-11-30 09:10 | CR ---
CHEST: Portable 11/29/2020 at 6:02 PM CLINICAL HISTORY:Hypoxia, covid COMPARISON:08/21/2020 FINDINGS: The heart size, pulmonary vascularity and hilar structures are normal. No infiltrate effusion or pneumothorax is seen. IMPRESSION: No acute cardiopulmonary process. Previous cc and lower lobe infiltrates have resolved
== END 2020-11-29 20:00 ==
LOC: JP.ED 16:52
DX: U07.1 COVID-19 (principal); I48.91 Unspecified atrial fibrillation; E78.00 Pure hypercholesterolemia, unspecified; I25.2 Old myocardial infarction; I10 Essential (primary) hypertension; E11.40 Type 2 diabetes mellitus with diabetic neuropathy, unspecified; E66.9 Obesity, unspecified; Z68.30 Body mass index [BMI] 30.0-30.9, adult; Z86.718 Personal history of other venous thrombosis and embolism; Z79.899 Other long term (current) drug therapy; Z79.84 Long term (current) use of oral hypoglycemic drugs
CPT/HCPCS: 36415; 36600; 71045; 80053; 82728; 82803; 83605; 83615; 84145; 85025; 85379; 96374; 99285; A9270; J1100; J7050

== ENCOUNTER 2021-08-15 20:11 | Emergency (ER) | payer MEDICARE, BC ==
[2021-08-15 20:27] VITALS: BP 157/90; PULSE 65
[2021-08-15] MEDS ORDERED: Acetaminophen/HYDROcodone 325-5 MG Tab PO ONE (20:37)
== END 2021-08-15 21:37 | disposition home or self-care (01) ==
LOC: JP.ED 20:11
DX: S62.025A Nondisplaced fracture of middle third of navicular [scaphoid] bone of left wrist, initial encounter for closed fracture (principal); S70.11XA Contusion of right thigh, initial encounter; I25.10 Atherosclerotic heart disease of native coronary artery without angina pectoris; E78.00 Pure hypercholesterolemia, unspecified; I25.2 Old myocardial infarction; I10 Essential (primary) hypertension; K21.9 Gastro-esophageal reflux disease without esophagitis; J45.909 Unspecified asthma, uncomplicated; E11.9 Type 2 diabetes mellitus without complications; E66.9 Obesity, unspecified; Z68.36 Body mass index [BMI] 36.0-36.9, adult; Z86.73 Personal history of transient ischemic attack (TIA), and cerebral infarction without residual deficits; Z79.899 Other long term (current) drug therapy; Z79.01 Long term (current) use of anticoagulants; Z90.49 Acquired absence of other specified parts of digestive tract; Z79.84 Long term (current) use of oral hypoglycemic drugs; W18.39XA Other fall on same level, initial encounter
CPT/HCPCS: 73110-LT; 73130-LT; 99282; 99283-25; A9270-GY

== ENCOUNTER 2022-06-12 15:34 | Emergency (ER) | payer MEDICARE, BC ==
[2022-06-12] MEDS ORDERED: HYDROmorphone 1 MG/ML Syringe IM ONE (16:26)
[2022-06-12 17:55] LABS: CORONAVIRUS COVID-19 NAA NEGATIVE (NEGATIVE)
[2022-06-12 20:03] VITALS: BP 143/88; PULSE 72
== END 2022-06-12 18:39 | disposition home or self-care (01) ==
LOC: JP.ED 15:34
DX: S72.111A Displaced fracture of greater trochanter of right femur, initial encounter for closed fracture (principal); I48.91 Unspecified atrial fibrillation; I25.10 Atherosclerotic heart disease of native coronary artery without angina pectoris; E78.00 Pure hypercholesterolemia, unspecified; J45.909 Unspecified asthma, uncomplicated; E11.22 Type 2 diabetes mellitus with diabetic chronic kidney disease; N18.9 Chronic kidney disease, unspecified; K21.9 Gastro-esophageal reflux disease without esophagitis; E66.9 Obesity, unspecified; Z68.38 Body mass index [BMI] 38.0-38.9, adult; Z86.73 Personal history of transient ischemic attack (TIA), and cerebral infarction without residual deficits; Z20.822 Contact with and (suspected) exposure to COVID-19; Z79.01 Long term (current) use of anticoagulants; Z79.84 Long term (current) use of oral hypoglycemic drugs; Z79.899 Other long term (current) drug therapy; W11.XXXA Fall on and from ladder, initial encounter
CPT/HCPCS: 0241U; 36415; 72192; 80048; 85025; 85610; 96372; 99284; J1170

== ENCOUNTER 2022-08-27 21:18 | Emergency (ER) | payer MEDICARE, BC ==
[2022-08-27] MEDS ORDERED: Propofol 200 MG/20 ML SDV IVPUSH ONE (21:32)
[2022-08-27 22:11] VITALS: BP 133/99; PULSE 147
== END 2022-08-27 22:36 | disposition home or self-care (01) ==
LOC: JP.ED 21:18
DX: I48.91 Unspecified atrial fibrillation (principal); I25.10 Atherosclerotic heart disease of native coronary artery without angina pectoris; I25.2 Old myocardial infarction; E78.00 Pure hypercholesterolemia, unspecified; J45.909 Unspecified asthma, uncomplicated; I12.9 Hypertensive chronic kidney disease with stage 1 through stage 4 chronic kidney disease, or unspecified chronic kidney disease; E11.22 Type 2 diabetes mellitus with diabetic chronic kidney disease; N18.9 Chronic kidney disease, unspecified; E66.9 Obesity, unspecified; Z68.37 Body mass index [BMI] 37.0-37.9, adult; Z79.01 Long term (current) use of anticoagulants; Z79.899 Other long term (current) drug therapy; Z79.84 Long term (current) use of oral hypoglycemic drugs
CPT/HCPCS: 92960; 93005; 99284; J2704

== ENCOUNTER 2023-09-15 07:51 | Emergency (ER) | payer MEDICARE, BC ==
[2023-09-15 08:33] LABS: HEMATOCRIT 37.7 % (38.4-49.7); HEMOGLOBIN 12.7 g/dL (12.9-16.9)
[2023-09-15 09:24] VITALS: BP 137/96; PULSE 65
== END 2023-09-15 09:20 | disposition home or self-care (01) ==
LOC: JP.ED 07:51
DX: K64.4 Residual hemorrhoidal skin tags (principal); I48.91 Unspecified atrial fibrillation; E11.9 Type 2 diabetes mellitus without complications; Z90.49 Acquired absence of other specified parts of digestive tract; Z79.01 Long term (current) use of anticoagulants; Z79.899 Other long term (current) drug therapy; Z79.84 Long term (current) use of oral hypoglycemic drugs
CPT/HCPCS: 36415; 85014; 85018; 99283; 99284

== ENCOUNTER 2024-02-25 12:04 | Emergency (ER) | payer MEDICARE, BC ==
[2024-02-25] MEDS ORDERED: Sodium Chloride 0.9% 10 ML Syringe FLUSH PRN (12:54)
[2024-02-25 13:17] LABS: BASOPHILS PERCENT AUTO 0.5 % (0.1-1.3); EOSINOPHILS ABSOLUTE AUTO 0.12 K/uL (0.00-0.40); EOSINOPHILS PERCENT AUTO 2.8 % (0.0-5.4); HEMATOCRIT 36.6 % (38.4-49.7); HEMOGLOBIN 12.5 g/dL (12.9-16.9); IMMATURE GRAN PERCENT AUTO 0.2 % (0.0-0.7); LYMPHOCYTES ABSOLUTE AUTO 1.02 K/uL (0.8-3.3); LYMPHOCYTES PERCENT AUTO 23.8 % (11.4-47.7); MEAN CORPUSCULAR HEMOGLOBIN 32.6 pg (31.6-35.5); MEAN CORPUSCULAR HGB CONC 34.2 g/dL (31.6-35.5); MEAN CORPUSCULAR VOLUME 95.6 fL (81.4-99.0); MONOCYTES ABSOLUTE AUTO 0.53 K/uL (0.20-0.90); MONOCYTES PERCENT AUTO 12.4 % (3.3-12.6); NEUTROPHILS ABSOLUTE AUTO 2.59 K/uL (1.0-7.6); NEUTROPHILS PERCENT AUTO 60.3 % (40.0-78.1); PLATELET COUNT,PLT 159 K/uL (130-375); RED BLOOD CELL COUNT 3.83 M/uL (4.14-5.76); WHITE BLOOD CELL COUNT,WBC 4.3 K/uL (3.2-11.0)
[2024-02-25 13:22] LABS: BASOPHILS ABSOLUTE AUTO 0.02 K/uL (0.00-0.10); IMMATURE GRAN ABSOLUTE AUTO 0.01 K/uL (0.00-0.23)
[2024-02-25] MEDS: Diltiazem 25 MG/5 ML SDV IVPUSH ONE (13:27)
[2024-02-25] MEDS: Sodium Chloride 0.9% 1,000 ML IV ONE (13:31)
[2024-02-25 13:32] LABS: ANION GAP 8.8 mmol/L (5.0-14.0); CALCIUM 9.6 mg/dL (8.5-10.1); CREATININE 1.6 mg/dL (0.8-1.3); EST CRCL DRUG DOSING (CG) 43.77 mL/min; POTASSIUM,K 3.8 mmol/L (3.6-5.2)
[2024-02-25 13:33] LABS: INR 2.4
[2024-02-25] MEDS ORDERED: Propofol 200 MG/20 ML SDV ONE (14:19)
[2024-02-25 14:27] VITALS: BP 132/71; PULSE 77
== END 2024-02-25 15:20 | disposition home or self-care (01) ==
LOC: JP.ED 12:04
DX: I48.92 Unspecified atrial flutter (principal); I48.91 Unspecified atrial fibrillation; E11.22 Type 2 diabetes mellitus with diabetic chronic kidney disease; N18.9 Chronic kidney disease, unspecified; Z86.73 Personal history of transient ischemic attack (TIA), and cerebral infarction without residual deficits; Z90.49 Acquired absence of other specified parts of digestive tract; Z90.79 Acquired absence of other genital organ(s); Z79.01 Long term (current) use of anticoagulants; Z79.51 Long term (current) use of inhaled steroids; Z79.84 Long term (current) use of oral hypoglycemic drugs; Z79.899 Other long term (current) drug therapy
CPT/HCPCS: 36415; 71046; 80048; 85025; 85610; 92960; 93005; 93010; 96361; 96374; 99156; 99284; 99285; J1642; J2704; J3490; J7030

== ENCOUNTER 2024-06-02 15:13 | Emergency (ER) | payer MEDICARE, BC ==
[2024-06-02 16:01] LABS: BASOPHILS ABSOLUTE AUTO 0.03 K/uL (0.00-0.10); BASOPHILS PERCENT AUTO 0.8 % (0.1-1.3); EOSINOPHILS ABSOLUTE AUTO 0.06 K/uL (0.00-0.40); EOSINOPHILS PERCENT AUTO 1.5 % (0.0-5.4); HEMATOCRIT 34.6 % (38.4-49.7); HEMOGLOBIN 11.7 g/dL (12.9-16.9); LYMPHOCYTES ABSOLUTE AUTO 1.26 K/uL (0.8-3.3); LYMPHOCYTES PERCENT AUTO 32.2 % (11.4-47.7); MEAN CORPUSCULAR HEMOGLOBIN 32.8 pg (31.6-35.5); MEAN CORPUSCULAR HGB CONC 33.8 g/dL (31.6-35.5); MEAN CORPUSCULAR VOLUME 96.9 fL (81.4-99.0); MONOCYTES ABSOLUTE AUTO 0.55 K/uL (0.20-0.90); MONOCYTES PERCENT AUTO 14.1 % (3.3-12.6); NEUTROPHILS ABSOLUTE AUTO 2.01 K/uL (1.0-7.6); NEUTROPHILS PERCENT AUTO 51.4 % (40.0-78.1); PLATELET COUNT,PLT 137 K/uL (130-375); RED BLOOD CELL COUNT 3.57 M/uL (4.14-5.76); WHITE BLOOD CELL COUNT,WBC 3.9 K/uL (3.2-11.0)
[2024-06-02] MEDS: Sodium Chloride 0.9% 1,000 ML IV ONE (16:05)
[2024-06-02] MEDS: Diltiazem 25 MG/5 ML SDV IVPUSH ONE ×2 (16:07→17:00)
[2024-06-02 16:29] LABS: CALCIUM 9.4 mg/dL (8.5-10.1); CREATININE 1.8 mg/dL (0.8-1.3); EST CRCL DRUG DOSING (CG) 38.3 mL/min; POTASSIUM,K 4.4 mmol/L (3.6-5.2)
[2024-06-02 16:30] LABS: ANION GAP 14.4 mmol/L (5.0-14.0)
[2024-06-02 16:31] LABS: INR 2.5; PROTHROMBIN TIME 24.3 sec (9.2-10.6)
[2024-06-02 18:50] VITALS: BP 125/95; PULSE 74
== END 2024-06-02 18:40 | disposition home or self-care (01) ==
LOC: JP.ED 15:13
DX: I48.91 Unspecified atrial fibrillation (principal); E11.9 Type 2 diabetes mellitus without complications; N18.9 Chronic kidney disease, unspecified; Z79.899 Other long term (current) drug therapy; Z79.01 Long term (current) use of anticoagulants; Z79.84 Long term (current) use of oral hypoglycemic drugs; Z86.73 Personal history of transient ischemic attack (TIA), and cerebral infarction without residual deficits
CPT/HCPCS: 36415; 71046; 71046-26; 80048; 84484; 85025; 85610; 93005; 93010; 96361; 96374; 96376; 99285; 99285-25; J3490; J7030

== ENCOUNTER 2024-06-04 00:32 | Inpatient (IN) | payer MEDICARE, BC ==
[2024-06-04 00:44] LABS: BASOPHILS ABSOLUTE AUTO 0.04 K/uL (0.00-0.10); BASOPHILS PERCENT AUTO 0.7 % (0.1-1.3); EOSINOPHILS ABSOLUTE AUTO 0.03 K/uL (0.00-0.40); EOSINOPHILS PERCENT AUTO 0.6 % (0.0-5.4); HEMATOCRIT 37.3 % (38.4-49.7); HEMOGLOBIN 12.6 g/dL (12.9-16.9); IMMATURE GRAN PERCENT AUTO 0.4 % (0.0-0.7); LYMPHOCYTES ABSOLUTE AUTO 1.27 K/uL (0.8-3.3); LYMPHOCYTES PERCENT AUTO 23.6 % (11.4-47.7); MEAN CORPUSCULAR HEMOGLOBIN 32.9 pg (31.6-35.5); MEAN CORPUSCULAR HGB CONC 33.8 g/dL (31.6-35.5); MEAN CORPUSCULAR VOLUME 97.4 fL (81.4-99.0); MONOCYTES ABSOLUTE AUTO 0.65 K/uL (0.20-0.90); MONOCYTES PERCENT AUTO 12.1 % (3.3-12.6); NEUTROPHILS ABSOLUTE AUTO 3.36 K/uL (1.0-7.6); NEUTROPHILS PERCENT AUTO 62.6 % (40.0-78.1); PLATELET COUNT,PLT 123 K/uL (130-375); RED BLOOD CELL COUNT 3.83 M/uL (4.14-5.76); WHITE BLOOD CELL COUNT,WBC 5.4 K/uL (3.2-11.0)
[2024-06-04 00:52] LABS: IMMATURE GRAN ABSOLUTE AUTO 0.02 K/uL (0.00-0.23)
[2024-06-04 01:02] LABS: INR 2.6; PROTHROMBIN TIME 25.1 sec (9.2-10.6)
[2024-06-04] MEDS: Adenosine 6 MG/2 ML SDV IVPUSH ONE ×2 (01:02→01:03)
[2024-06-04] MEDS: Sodium Chloride 0.9% 1,000 ML IV ONE (01:03)
[2024-06-04 01:10] LABS: ANION GAP 14.4 mmol/L (5.0-14.0); CALCIUM 9.3 mg/dL (8.5-10.1); CREATININE 1.7 mg/dL (0.8-1.3); EST CRCL DRUG DOSING (CG) 40.56 mL/min; POTASSIUM,K 4.4 mmol/L (3.6-5.2); TROPONIN I HIGH SENSITIVITY 59.6 pg/mL (<=60.3)
[2024-06-04] MEDS: cefTRIAXone 2 GM in Sodium Chloride 0.9% 50 ML IV ONE (02:02)
[2024-06-04] MEDS: Propofol 200 MG/20 ML SDV IVPUSH ONE (02:02)
[2024-06-04] MEDS: Doxycycline 100 MG Cap PO ONE (02:02)
[2024-06-04] MEDS: Albuterol/Ipratropium 3.0-0.5 MG/3 ML Neb Soln NEB ONE (03:15)
[2024-06-04] MEDS: Furosemide 20 MG/2 ML VIAL IVPUSH ONE (03:25)
[2024-06-04] MEDS ORDERED: Ondansetron 4 MG Tab.DIS PO PRN (04:13)
[2024-06-04] MEDS ORDERED: Sennosides/Docusate Sodium 50-8.6 MG Tab PO PRN (04:13)
[2024-06-04] MEDS ORDERED: Melatonin 3 MG Tab PO PRN (04:13)
[2024-06-04] MEDS ORDERED: Ondansetron 4 MG/2 ML SDV IV PRN (04:13)
[2024-06-04] MEDS ORDERED: Magnesium Hydroxide 400 MG/5 ML Susp 30 ML Cup PO PRN (04:13)
[2024-06-04 04:19] LABS: CORONAVIRUS COVID-19 NAA NEGATIVE (NEGATIVE); INFLUENZA A NAA NEGATIVE (NEGATIVE); INFLUENZA B NAA NEGATIVE (NEGATIVE); RESPIRATORY SYNCYTIAL VIR NAA NEGATIVE (NEGATIVE)
[2024-06-04] MEDS: Albuterol 0.083% 2.5 MG/3 ML Neb Soln NEB PRN (05:12)
[2024-06-04] MEDS ORDERED: Benzonatate 100 MG Cap PO PRN (05:37)
[2024-06-04] MEDS ORDERED: Warfarin 5 MG Tab PO SCH (05:45)
[2024-06-04 06:42] LABS: HEMATOCRIT 36.1 % (38.4-49.7); HEMOGLOBIN 12.2 g/dL (12.9-16.9); MEAN CORPUSCULAR HEMOGLOBIN 33.1 pg (31.6-35.5); MEAN CORPUSCULAR HGB CONC 33.8 g/dL (31.6-35.5); MEAN CORPUSCULAR VOLUME 97.8 fL (81.4-99.0); RED BLOOD CELL COUNT 3.69 M/uL (4.14-5.76)
[2024-06-04 06:56] LABS: CALCIUM 9.2 mg/dL (8.5-10.1); CREATININE 1.7 mg/dL (0.8-1.3); EST CRCL DRUG DOSING (CG) 41.19 mL/min; MAGNESIUM 1.3 mg/dL (1.8-2.4); POTASSIUM,K 4.4 mmol/L (3.6-5.2)
[2024-06-04 06:58] LABS: INR 2.7; PROTHROMBIN TIME 26.1 sec (9.2-10.6)
[2024-06-04 07:08] LABS: ANION GAP 13.4 mmol/L (5.0-14.0)
[2024-06-04] MEDS: Albuterol/Ipratropium 3.0-0.5 MG/3 ML Neb Soln NEB SCH ×2 (07:12→10:41)
[2024-06-04] MEDS: DULoxetine 30 MG Cap PO SCH (08:19)
[2024-06-04] MEDS: Loratadine 10 MG Tab PO SCH (08:19)
[2024-06-04] MEDS: Cholecalciferol (Vitamin D3) 25 MCG Tab PO SCH (08:21)
[2024-06-04] MEDS: Oxybutynin 5 MG Tab PO SCH (08:21)
[2024-06-04] MEDS: Metoprolol Tartrate 50 MG Tab PO SCH (08:21)
[2024-06-04] MEDS: Lactobacillus Rhamnosus GG (Probiotic) Cap PO SCH (08:23)
[2024-06-04] MEDS: Magnesium Oxide 400 MG Tab PO SCH (08:23)
[2024-06-04] MEDS: metFORMIN 500 MG Tab PO SCH (08:26)
[2024-06-04] MEDS: Magnesium Sulf/Wat 2 GM/50 mL 2 GM in Premix Bag 1 BAG IV SCH (08:46)
[2024-06-04] MEDS ORDERED: Non-Formulary Medication 1 Each (Magnesium Chloride [Mag Delay] 64 MG Tablet.Dr) PO SCH (09:00)
[2024-06-04] MEDS ORDERED: OXYBUTYNIN 10 MG PO SCH (09:00)
[2024-06-04] MEDS ORDERED: Non-Formulary Medication 1 Each (Cholecalciferol (Vitamin D3) [Vitamin D3] 1,000 UNIT Caps PO SCH (09:00)
[2024-06-04] MEDS: Doxycycline 100 MG in Sodium Chloride 0.9% 100 ML IV SCH (10:20)
[2024-06-04] MEDS: predniSONE 20 MG Tab PO ONE (10:20)
[2024-06-04] MEDS: Warfarin 2.5 MG Tab PO SCH (13:18)
[2024-06-04] MEDS: Acetaminophen 325 MG Tab PO PRN (13:43)
[2024-06-04] MEDS: cefTRIAXone 2 GM in Sodium Chloride 0.9% 50 ML IV SCH (20:14)
[2024-06-04] MEDS: atorvaSTATin 20 MG Tab PO SCH (20:15)
[2024-06-04] MEDS: Verapamil 120 MG Tab.ER PO SCH (20:19)
[2024-06-04] MEDS: Multivitamins with Iron/Calcium/Folic Acid/Minerals Tab PO SCH (20:20)
[2024-06-04] MEDS: Gabapentin 400 MG Cap PO SCH (20:20)
[2024-06-04] MEDS ORDERED: Non-Formulary Medication 1 Each (Atorvastatin [Lipitor] 40 MG Tab) PO SCH (21:00)
[2024-06-04] MEDS ORDERED: Gabapentin 300 MG Cap PO SCH (21:00)
[2024-06-05 05:33] LABS: HEMATOCRIT 33.3 % (38.4-49.7); HEMOGLOBIN 11.2 g/dL (12.9-16.9); MEAN CORPUSCULAR HEMOGLOBIN 32.6 pg (31.6-35.5); MEAN CORPUSCULAR HGB CONC 33.6 g/dL (31.6-35.5); MEAN CORPUSCULAR VOLUME 96.8 fL (81.4-99.0); RED BLOOD CELL COUNT 3.44 M/uL (4.14-5.76); WHITE BLOOD CELL COUNT,WBC 3.5 K/uL (3.2-11.0)
[2024-06-05 05:48] LABS: CALCIUM 8.8 mg/dL (8.5-10.1); CREATININE 1.4 mg/dL (0.8-1.3); EST CRCL DRUG DOSING (CG) 50.02 mL/min; POTASSIUM,K 4.5 mmol/L (3.6-5.2)
[2024-06-05] MEDS: predniSONE 20 MG Tab PO SCH (07:42)
[2024-06-05] MEDS: Cefdinir 300 MG Cap PO SCH (21:13)
[2024-06-05] MEDS: Doxycycline 100 MG Cap PO SCH (21:14)
[2024-06-06 05:36] LABS: BASOPHILS ABSOLUTE AUTO 0.03 K/uL (0.00-0.10); BASOPHILS PERCENT AUTO 0.7 % (0.1-1.3); EOSINOPHILS PERCENT AUTO 0.2 % (0.0-5.4); HEMATOCRIT 33.7 % (38.4-49.7); HEMOGLOBIN 11.5 g/dL (12.9-16.9); LYMPHOCYTES ABSOLUTE AUTO 1.08 K/uL (0.8-3.3); LYMPHOCYTES PERCENT AUTO 26.2 % (11.4-47.7); MEAN CORPUSCULAR HEMOGLOBIN 32.7 pg (31.6-35.5); MEAN CORPUSCULAR HGB CONC 34.1 g/dL (31.6-35.5); MEAN CORPUSCULAR VOLUME 95.7 fL (81.4-99.0); MONOCYTES ABSOLUTE AUTO 0.51 K/uL (0.20-0.90); MONOCYTES PERCENT AUTO 12.3 % (3.3-12.6); NEUTROPHILS PERCENT AUTO 60.6 % (40.0-78.1); PLATELET COUNT,PLT 112 K/uL (130-375); RED BLOOD CELL COUNT 3.52 M/uL (4.14-5.76); WHITE BLOOD CELL COUNT,WBC 4.1 K/uL (3.2-11.0)
[2024-06-06 05:39] LABS: EOSINOPHILS ABSOLUTE AUTO 0.01 K/uL (0.00-0.40)
[2024-06-06 05:52] LABS: PROTHROMBIN TIME 42.6 sec (9.2-10.6)
[2024-06-06 05:54] LABS: CALCIUM 8.9 mg/dL (8.5-10.1); CREATININE 1.4 mg/dL (0.8-1.3); EST CRCL DRUG DOSING (CG) 50.02 mL/min; POTASSIUM,K 4.1 mmol/L (3.6-5.2)
[2024-06-06 05:55] LABS: INR 4.4
[2024-06-06 05:56] LABS: ANION GAP 13.1 mmol/L (5.0-14.0)
[2024-06-06] MEDS: Furosemide 20 MG Tab PO SCH (08:02)
[2024-06-06] MEDS: Empagliflozin 25 MG Tab PO SCH (08:02)
[2024-06-06] MEDS ORDERED: Sodium Chloride 0.9% 10 ML Syringe IV PRN (09:55)
[2024-06-06 12:01] VITALS: BP 127/78; PULSE 85
== END 2024-06-06 11:55 | disposition home or self-care (01) | DRG 193 ==
LOC: JP.ED 00:32 → JP.MS 04:07
PROVIDERS: ADMIT Registered Nurse; ATTEND Hospitalist
PROC: 5A2204Z Restoration of Cardiac Rhythm, Single (ICD-10-PCS; principal; 2024-06-04)
DX: J18.9 Pneumonia, unspecified organism (principal); I50.31 Acute diastolic (congestive) heart failure; J96.01 Acute respiratory failure with hypoxia; N18.9 Chronic kidney disease, unspecified; E11.9 Type 2 diabetes mellitus without complications; I47.10 Supraventricular tachycardia, unspecified; D84.9 Immunodeficiency, unspecified; I48.91 Unspecified atrial fibrillation; Z79.51 Long term (current) use of inhaled steroids; E11.22 Type 2 diabetes mellitus with diabetic chronic kidney disease; Z79.84 Long term (current) use of oral hypoglycemic drugs; N18.32 Chronic kidney disease, stage 3b; H91.90 Unspecified hearing loss, unspecified ear; H54.7 Unspecified visual loss; K21.9 Gastro-esophageal reflux disease without esophagitis; E86.0 Dehydration; C61 Malignant neoplasm of prostate; I34.0 Nonrheumatic mitral (valve) insufficiency; Z86.73 Personal history of transient ischemic attack (TIA), and cerebral infarction without residual deficits; Z85.46 Personal history of malignant neoplasm of prostate; Z98.49 Cataract extraction status, unspecified eye; Z90.49 Acquired absence of other specified parts of digestive tract; Z90.79 Acquired absence of other genital organ(s); Z86.711 Personal history of pulmonary embolism; Z79.899 Other long term (current) drug therapy; Z98.890 Other specified postprocedural states; Z79.01 Long term (current) use of anticoagulants
CPT/HCPCS: 0241U; 36415; 71045; 71045-26; 80048; 83735; 84484; 85025; 85027; 85610; 87040; 92960; 93005; 93010; 94640; 96361; 96365; 96375; 97161-GP; 99222; 99232; 99238; 99284; 99285-25; A7290-GY; A9270-GY; J0153; J0696; J1940; J2704; J3475; J3490; J7030; J7512

== ENCOUNTER 2024-08-16 00:30 | Emergency (ER) | payer MEDICARE, BC ==
[2024-08-16] MEDS: HYDROmorphone 1 MG/ML Syringe IM ONE (01:27)
[2024-08-16 02:10] VITALS: BP 123/93
[2024-08-16 02:34] VITALS: PULSE 88
== END 2024-08-16 02:41 | disposition home or self-care (01) ==
LOC: JP.ED 00:30
DX: S16.1XXA Strain of muscle, fascia and tendon at neck level, initial encounter (principal); I12.9 Hypertensive chronic kidney disease with stage 1 through stage 4 chronic kidney disease, or unspecified chronic kidney disease; N18.9 Chronic kidney disease, unspecified; E78.00 Pure hypercholesterolemia, unspecified; I48.91 Unspecified atrial fibrillation; K21.9 Gastro-esophageal reflux disease without esophagitis; E11.22 Type 2 diabetes mellitus with diabetic chronic kidney disease; Z79.899 Other long term (current) drug therapy; Z79.01 Long term (current) use of anticoagulants; Z79.84 Long term (current) use of oral hypoglycemic drugs; X50.9XXA Other and unspecified overexertion or strenuous movements or postures, initial encounter
CPT/HCPCS: 70450; 96372; 99284; J1171